=== PATIENT | male | born 1965 | race Caucasian/White ===

== ENCOUNTER 2017-01-28 12:34 | Emergency (ER) | payer MEDICARE ==
[2017-01-28 13:22] LABS: BASOPHILS 0.3 % (0-2); EOSINOPHILS 3.4 % (0-7); HEMATOCRIT 43.7 % (42.0-54.0); HEMOGLOBIN 14.4 g/dL (13.5-17.5); IMMATURE GRANULOCYTES 0.1 % (0-5); LYMPHOCYTES 18.3 % (15-50); MCH 30.5 pg (26.0-34.0); MCV 92.6 fL (80.0-100.0); MEAN PLATELET VOLUME 10.7 fL (7.4-10.4); MONOCYTES 6.7 % (2-11); NEUTROPHILS 71.2 % (40-80); PLATELET COUNT 175 10x3/uL (130-400); RBC 4.72 10x6/uL (4.20-6.10); RDW 14.1 % (11.5-14.5); WBC 11.5 10x3/uL (4.8-10.8)
[2017-01-28 13:56] LABS: ALKALINE PHOSPHATASE 128 U/L (46-116); ALT (SGPT) 43 U/L (10-68); BILIRUBIN - TOTAL 0.56 mg/dL (0.2-1.3); CALC OSMOLALITY 283 mosm/kg (275-300); CALCIUM 8.9 mg/dL (8.5-10.1); CARBON DIOXIDE 28.3 mmol/L (21.0-32.0); CHLORIDE - SERUM 104 mmol/L (98-107); GLUCOSE 130 mg/dL (74-106); POTASSIUM - SERUM 4.5 mmol/L (3.5-5.1); PROTEIN - SERUM 7.3 g/dL (6.4-8.2); SODIUM 142 mmol/L (136-145); UREA NITROGEN 11 mg/dL (7-18); eGFR NON AFRICAN AMERICAN 83 mL/min (90-120)
[2017-01-28 14:09] LABS: CKMB 1.2 U/L (0.0-3.6); CREATINE KINASE 146 UL (21-232); PRO BNP 115 pg/mL (0-125)
[2017-01-28 14:11] LABS: TROPONIN-I < 0.017 ng/mL (0.000-0.060)
== END 2017-01-28 16:25 | disposition home or self-care (01) ==
LOC: D.ER 12:34
PROVIDERS: Emergency Medicine
DX: R07.9 Chest pain, unspecified (principal); R51 Headache; Z86.73 Personal history of transient ischemic attack (TIA), and cerebral infarction without residual deficits

== ENCOUNTER 2017-10-22 18:46 | Emergency (ER) | payer OTHER | END 2017-10-22 19:30 | disposition home or self-care (01) | LOC: D.ER 18:46 | DX: M62.838 Other muscle spasm (principal); F17.200 Nicotine dependence, unspecified, uncomplicated ==

== ENCOUNTER 2018-08-18 21:03 | Emergency (ER) | payer MEDICARE ==
[~2018-08-18] VITALS: Ht 175.3 cm; Wt 70.5 kg
[2018-08-18 21:17] VITALS: Ht 175.3 cm; Wt 70.5 kg
[2018-08-18] MEDS ORDERED: GEMFIBROZIL600 MG PO (21:18)
[2018-08-18] MEDS ORDERED: MINIPRESS1 MG PO (21:18)
[2018-08-18] MEDS ORDERED: GLUCOPHAGE500 MG PO (21:19)
[2018-08-18] MEDS ORDERED: CRESTOR40 MG PO (21:19)
[2018-08-18] MEDS ORDERED: PLAVIX75 MG PO (21:19)
[2018-08-18] MEDS ORDERED: OMEPRAZOLE40 MG PO (21:20)
[2018-08-18] MEDS ORDERED: BAYER CHEWABLE81 MG PO (21:20)
[2018-08-18] MEDS ORDERED: PERCOCET 7.5/321 TAB PO (21:21)
[2018-08-18] MEDS ORDERED: TERBINAFINE (21:21)
[2018-08-18 22:27] LABS: APPEARANCE CLEAR (CLEAR); BILIRUBIN NEGATIVE (NEGATIVE); COLOR YELLOW (YELLOW); GLUCOSE NEGATIVE (NEGATIVE); KETONE NEGATIVE (NEGATIVE); NITRITE NEGATIVE (NEGATIVE); PROTEIN NEGATIVE (NEGATIVE); UROBILINOGEN NORMAL (NORMAL)
[2018-08-18 22:52] LABS: BASOPHILS 0.5 % (0-2); HEMATOCRIT 33.5 % (42.0-54.0); HEMOGLOBIN 11.3 g/dL (13.5-17.5); IMMATURE GRANULOCYTES 0.2 % (0-5); LYMPHOCYTES 31.8 % (15-50); MCHC 33.7 g/dL (31.0-37.0); MCV 88.9 fL (80.0-100.0); MEAN PLATELET VOLUME 9.8 fL (7.4-10.4); MONOCYTES 9.6 % (2-11); NEUTROPHILS 54.9 % (40-80); PLATELET COUNT 193 10x3/uL (130-400); RBC 3.77 10x6/uL (4.20-6.10); RDW 13.2 % (11.5-14.5); WBC 6.3 10x3/uL (4.8-10.8)
[2018-08-18 22:57] LABS: ALBUMIN 3.5 g/dL (3.4-5.0); ALKALINE PHOSPHATASE 102 U/L (46-116); ALT (SGPT) 50 U/L (10-68); BILIRUBIN - TOTAL 0.31 mg/dL (0.2-1.3); CALC OSMOLALITY 287 mosm/kg (275-300); CALCIUM 8.3 mg/dL (8.5-10.1); CARBON DIOXIDE 29.1 mmol/L (21.0-32.0); CHLORIDE - SERUM 105 mmol/L (98-107); CREATININE - SERUM 0.9 mg/dL (0.6-1.3); GLUCOSE 159 mg/dL (74-106); PROTEIN - SERUM 6.9 g/dL (6.4-8.2); SODIUM 142 mmol/L (136-145); UREA NITROGEN 17 mg/dL (7-18); eGFR NON AFRICAN AMERICAN > 90 mL/min (90-120)
[2018-08-18] MEDS ORDERED: ZOFRAN ODT4 MG/UDTAB PO (23:16)
[2018-08-18 23:56] VITALS: BP 139/74
== END 2018-08-18 23:56 | disposition home or self-care (01) ==
LOC: D.ER 21:03
PROVIDERS: Emergency Medicine
DX: R11.10 Vomiting, unspecified (principal); E86.0 Dehydration; Z86.73 Personal history of transient ischemic attack (TIA), and cerebral infarction without residual deficits; E11.9 Type 2 diabetes mellitus without complications; J44.9 Chronic obstructive pulmonary disease, unspecified

== ENCOUNTER 2019-04-20 13:38 | Inpatient (IN) | payer MEDICARE ==
[~2019-04-20] VITALS: Ht 175.3 cm; Wt 68.2 kg
--- NOTE | ~2019-04-20 | HEMODYNAMI ---
PATIENT:KENDRA BARRY MEDICAL RECORD: [id number] : 63 [address] [id number] ADMISSION DATE: 04/21/19 Generatedon:04/21/201915:41 Patient name: KENDRA BARRY Patient #: [id number] N: [id number] : 1965 Date of study: 04/21/2019 Page: Of Hemodynamic Procedure Report Patient Data Patient Demographics Procedure consent was obtained First Name: KENDRA Gender: Male Last Name: ASHA : 1965 Middle Initial: RAMONEWARD Age: 54 year(s) Patient #: [id number] Race: SSN: [id number] Additional ID: [id number] Contact details Address: [address] [place] [address] State: [place] City: [place] Zip code: [address] Past Medical History Allergies: No known allergies Admission Admission Data Admission Date: 04/21/2019 Admission Time: 11:42 Room #: [facility] Insurance Payor: Medicare [facility] #: [id number] Height (in.): 68.9 BSA: 1.83 (m2) Height (cm.): 175 BMI: 22.2 (kg/m2) Weight (lbs.): 149.92 Weight (kg.): 68 Lab Results Lab Result Date: 04/21/2019 Lab Result Time: 4:37 Biochemistry Name Units Result Min Max BUN mg/dl 18 --(---*)-- 7 18 Creatinine mg/dl 0.9 --(-*--)-- 0.6 1.3 CBC Name Units Result Min Max Hematocrit % 40.9 -*(----)-- 42 54 Hemoglobin g/dl 14.1 --(*---)-- 13.5 17.5 Procedure Procedure Types Cath Procedure Diagnostic Procedure LHC LHC w/Coronaries Peripheral Cath Diagnostic Procedure Sports Book Writer Peripheral Procedures Utqok-Exnvpns-Ukc-Off Four Vessel Arteriogram Peripheral vascular Intervention Stent Stent Iliac w/plasty Initial Procedure Description Procedure Date Procedure Date: 04/21/2019 Procedure Start Time: 14:58 Procedure End Time: 15:39 Procedure Staff Name Function Cullen Colvin MD Performing Physician Juan Carlos Gandhi RT Monitor Ran Bragg RT Scrub Chiqui Cao RN Nurse Procedure Data Cath Procedure Fluoroscopy Diagnostic fluoroscopy Total fluoroscopy Time: 9.8 time: 9.8 min min Diagnostic fluoroscopy Total fluoroscopy dose: 742 dose: 742 mGy mGy Contrast Material Contrast Material Type Amount (ml) Isovue 300 204 Entry Location Entry Primary Successful Side Size Upsize 1 Upsize Entry Closure Briceno ccessful Closure Location (Fr) (Fr) 2 (Fr) Remarks Device Remarks Femoral Right 5 Fr 6 Fr 6 Fr Exoseal artery Mid-Length Short Estimated blood loss: 10 ml Diagnostic catheters Device Type Used For End Catheter Placement MULTIPACK 3DRC 5Fr Procedure catheter MULTIPACK JL 4.0 5Fr Procedure catheter MULTIPACK Pigtail 5 Fr Procedure catheter Procedure Complications No complications Procedure Medications Medication Administration Route Dosage Oxygen etCO2 Nasal cannula 2 l/min Lidocaine 2% added to field 20 Heparin Flush Bag added to field 2 bags (1000units/500ml NS) 0.9% NaCl I.V. 100 ml/hr Versed I.V. 1 mg Fentanyl I.V. 50 mcg Versed I.V. 1 mg Fentanyl I.V. 50 mcg Versed I.V. 1 mg Fentanyl I.V. 50 mcg Versed I.V. 1 mg Fentanyl I.V. 50 mcg Heparin Bolus I.V. 4000 units Hemodynamics Rest BSA: 1.83 (m2) HGB: 14.1 (g/dl) O2 Consumption: Estimated: 217.92 (ml/min) O2 Co nsumption indexed: Estimated:119.08 (ml/min/m) Heart Rate: 72 (bpm) Pressure Samples Time Site Value (mmHg) Purpose Heart Use Rate(bpm) 15:13 LV 97/5,14 Snapshot 77 15:13 AO 105/58(79) Pullback 83 Gradients Valve Time Site Site 2 Mean SEP/DFP Peak To Heart Use 1 (mmHg) (sec/min) Peak Rate (mmHg) (bpm) Aortic 15:13 LV AO 17 37 83 105/58(79) Calculations Valve P-P Mean Valve Index Valve Source Name Gradient Area Flow (cm2) Aortic 17 17 Snapshots Pre Cath Intra NCS Post Cath Vital Signs Time Heart Resp SPO2 etCO2 NIBP (mmHg) Rhythm Pain Sedation Rate (ipm) (%) (mmHg) Status Level (bpm) 14:52:02 73 18 96 30.8 131/89(113) NSR 0 (11) 10(A) , No pain 14:55:49 77 12 96 24.7 115/74(91) NSR 0 (11) 10(A) , No pain 14:59:37 73 14 94 23.2 112/70(98) NSR 0 (11) 10(A) , No pain 15:03:20 81 16 95 8.2 117/79(97) NSR 0 (11) 10(A) , No pain 15:07:25 79 15 96 37.6 123/79(100) NSR 0 (11) 10(A) , No pain 15:11:13 80 10 94 39.8 118/75(102) NSR 0 (11) 9(A) , No pain 15:15:02 81 14 93 39.8 112/66(93) NSR 0 (11) 9(A) , No pain 15:18:52 80 11 94 42.8 107/63(89) NSR 0 (11) 9(A) , No pain 15:22:39 83 12 94 40.5 101/66(87) NSR 0 (11) 9(A) , No pain 15:26:26 83 12 95 41.3 106/65(87) NSR 0 (11) 9(A) , No pain 15:30:14 80 13 94 41.3 103/63(85) NSR 0 (11) 9(A) , No pain 15:34:22 80 12 96 41.2 107/69(89) NSR 0 (11) 10(A) , No pain 15:38:25 86 11 42 139/80(97) NSR 0 (11) 10(A) , No pain Medications Time Medication Route Dose Verified Delivered Reason Notes Effectiveness by by 14:51:14 Oxygen etCO2 2 Cullen Florian used for Nasal l/min St Bulmaro Cao senior front end web developer cannula 14:51:20 Lidocaine 2% added 20ml Cullen Berman for local to vial St Bulmaro Colvin anesthetic field MD RASHEED 14:51:27 Heparin Flush added 2 Cullen Berman used for Bag to bags ViniciusBulmaro Colvin procedure (1000units/500ml field MD RASHEED NS) 14:51:35 0.9% NaCl I.V. 100 Cullen Nasirie Per physician ml/hr St Bulmaro Cao RN, MD 14:56:45 Versed I.V. 1 mg Cullen Buffie for sedation St Bulmaro Cao RN, MD 14:56:51 Fentanyl I.V. 50 Cullen Buffie for sedation mcg [facility] Bulmaro Cao RN, MD 15:00:28 Versed I.V. 1 mg Cullen Buffie for sedation St Bulmaro Cao RN, MD 15:00:32 Fentanyl I.V. 50 Cullen Buffie for sedation mcg [address] Bulmaro Cao RN, MD 15:10:56 Versed I.V. 1 mg Cullen Buffie for sedation St Blumaro Cao RN, MD 15:10:59 Fentanyl I.V. 50 Cullen Buffie for sedation mcg [facility] Bulmaro Cao RN, MD 15:17:36 Versed I.V. 1 mg Cullen Buffie for sedation St Bulmaro Cao RN, MD 15:17:39 Fentanyl I.V. 50 Cullen Buffie for sedation mcg [facility] Bulmaro Cao RN, MD 15:19:08 Heparin Bolus I.V. 4000 Cullen Buffie for verif ied units St Bulmaro Cao RN anticoagulation with dr MD sanabria Procedure Log Time Note 14:08:20 Insurance Payor : Medicare 14:10:54 Diagnostic Cath Status : Urgent 14:12:07 Patient allergic to No known allergies 14:13:05 Patient Weight : 149.92 lbs 14:13:09 Patient Height : 68.9 inches 14:16:41 ACC Patient presents with Unstable Angina CCS Anginal Class 4--Inability to carry out any physical activity w/o angina. Angina may occur at rest. 14:16:43 ACCPatient has been prescribed/administered the following anti-anginal medication within the last 2 weeks: None 14:18:55 Procedure Status Urgent Heart Cath (IP). 14:18:57 Juan Carlos ATKINSON(R) sent for patient. Start room use. 14:19:00 Time tracking: Regular hours (M-F 7:00 - 5:00) 14:19:04 Plan of Care:Hemodynamics will remain stable., Cardiac rhythm will remain stable., Comfort level will be maintained., Respiratory function will remain adequate., Patient/ family verbilizes understanding of procedure., Procedure tolerated without complication., Recovers from procedure without complications.. 14:19:15 H&P Date Dictated: 04/20/2019 Within 30 days and on chart.. 14::47 Lab Result : BUN 18 mg/dl 14::47 Lab Result : Creatinine 0.9 mg/dl 14::47 Lab Result : Hemoglobin 14.1 g/dl 14: Lab Result : Hematocrit 40.9 % 14:29:29 Patient received from Med II to CCL 2 Alert and oriented. Tansferred to table in Supine position. 14:29:31 Signed procedure consent form obtained from patient. 14:29:32 Warm blankets applied, and tonie hugger turned on for patient comfort. 14:29:33 Correct patient and procedure confirmed by team. 14:29:34 ECG and BP/O2 sat monitors applied to patient. 14:29:35 Pre-procedure instructions explained to patient. 14:29:36 Pre-op teaching completed and patient verbalized understanding. 14:29:45 Family in patients room. 14:29:46 Patient NPO since Midnight. 14:29:48 Is the patient allergic to Iodine/contrast media? No. 14:38:27 IV right wrist D/C'd due to infiltration. 14:38:35 IV started by Chiqui Cao RN inleft forearm with a 22 gauge IV catheter with 0.9% NaCl at KVO. 14:51:05 Vital chart was started 14:51:14 Oxygen 2 l/min etCO2 Nasal cannula was administered by Chiqui Cao RN; used for procedure; 14:51:20 Lidocaine 2% 20ml vial added to field was administered by Cullen Colvin MD; for local anesthetic; 14:51:27 Heparin Flush Bag (1000units/500ml NS) 2 bags added to field was administered by Cullen Colvin MD; used for procedure; 14:51:27 Baseline sample Acquired. 14:51:30 Rhythm: sinus rhythm 14:51:31 Full Disclosure recording started 14:51:35 0.9% NaCl 100 ml/hr I.V. was administered by Chiqui Cao RN; Per physician; 14:51:35 Is patient on blood thinner?Yes 14:51:37 ACC The patient was administered the following blood thiners within the last 24 hours: ACCPlavix 14:51:39 Patient diabetic? Yes. 14:51:40 If diabetic: On Metformin? Yes 14:51:44 If on Metformin: Last Dose? 04/20/2019 14:51:47 Previous problem with sedation/anesthesia? No ? 14:51:49 Snore? Yes 14:51:50 Sleep apnea? No 14:51:51 Deviated septum? No 14:51:51 Opens mouth fully? Yes 14:51:52 Sticks out tongue? Yes 14:51:54 Airway obstruction? No ? 14:51:57 Dentures? No ? 14:51:59 Pre procedure: right dorsailis pedis pulse 1+ Palpable, but thready & weak; easily obliterated 14:52:01 Patient pain scale 0/10 ?. 14:52:08 Lab results completed and on chart. 14:52:12 Right groin area was prepped with chlora-prep and draped in sterile fashion 14:52:13 Alarms reviewed by R. N. 14:52:14 Sharps counted by scrub and verified by R.N. 14:53:01 Use device set Femoral Dx 14:53:04 Tegaderm 4 x 4 (1626W) opened to sterile field. 14:53:06 ACIST Manifold (42333) opened to sterile field. 14:53:07 ACIST Hand Control (19159) opened to sterile field. 14:53:10 Medline Cath Pack ([id number]) opened to sterile field. 14:53:10 Bag Decanter (2002S) opened to sterile field. 14:53:10 ACIST Syringe (84468) opened to sterile field. 14:53:11 IV CATHETER 22g opened to sterile field. 14:53:12 IV Extension Set opened to sterile field. 14:53:14 DIAGNOSTIC Multipack 5Fr catheter set (CU0627) opened to sterile field. 14:53:15 SHEATH 5FR [place] (ETO839) opened to sterile field. 14:53:16 EMERALD Guide Wire (387-090) opened to sterile field. 14:55:45 --------ALL STOP TIME OUT------ 14:55:46 Final Timeout: patient, procedure, and site verified with staff and physician. All members of the team are in agreement. 14:55:48 Right groin site verified by team. 14:55:51 Fire Safety Assessment: A--An alcohol-based skin anteseptic being used preoperatively., C--Open oxygen or nitrous oxide is being used., D--An ESU, laser, or fiber-optic light is being used. 14:55:58 Physical assessment completed. ASA score P 2 - A patient with mild systemic disease as per Cullen Colvin MD. 14:56:07 2) 60-89 Mildly reduced kidney function, and other findings (as for stage 1) point to kidney disease. 14:56:12 Maximum allowable contrast dose (3.7 X eGFR X 0.75)228 ml. 14:56:17 Sedation plan: IV Moderate Sedation Medication:Versed, Fentanyl 14:56:45 Versed 1 mg I.V. was administered by Chiqui Cao RN; for sedation; 14:56:51 Fentanyl 50 mcg I.V. was administered by Chiqui Cao RN; for sedation; 14:58:15 Procedure started. 14:58:20 Local anesthetic to right femoral artery with Lidocaine 2% by Cullen Colvin MD.INITIAL ACCESS ONLY 15:00:28 Versed 1 mg I.V. was administered by Chiqui Cao RN; for sedation; 15:00:32 Fentanyl 50 mcg I.V. was administered by Chiqui Cao RN; for sedation; 15:03:58 A 5 Fr sheath was inserted into the Right Femoral artery 15:04:19 GLIDE WIRE ANGLE 260cm (MK6401) opened to sterile field. 15:04:34 A MULTIPACK 3DRC 5Fr catheter was advanced over the wire and used for Procedure. 15:04:44 Glidewire used to advance catheter. 15:05:55 RCA angiography performed. 15:06:58 Bilateral carotid angiography performed. 15:08:22 Catheter removed. 15:10:56 Versed 1 mg I.V. was administered by Chiqui Cao RN; for sedation; 15:10:59 Fentanyl 50 mcg I.V. was administered by Chiqui Cao RN; for sedation; 15:11:11 A MULTIPACK JL 4.0 5Fr catheter was advanced over the wire and used for Procedure. 15:11:18 LCA angiography performed. 15:11:28 ACCDominant side:Right 15:11:43 Catheter removed. 15:11:48 A MULTIPACK Pigtail 5 Fr catheter was advanced over the wire and used for Procedure. 15:13:25 LV angiography performed. 15:13:28 LV gram done using WANG 15:13:33 EF : 55 % 15:13:40 LV hemodynamics recorded. 15::43 Injector settings: Ml/sec: 10, Volume: 20, 15:15:39 Right leg runoff performed. 15:15:40 Left leg runoff performed. 15:16:19 Catheter removed. 15:16:23 Use device set ELCHO PCI 15:16:52 SHEATH 6FR Brite Tip 35cm ([id number]) opened to sterile field. 15:17:02 INFLATOR Merit BasixCompak (NE7445) opened to sterile field. 15:17:10 SHEATH 6FR [place] (JBK011) opened to sterile field. 15:17:36 Versed 1 mg I.V. was administered by Chiqui Cao RN; for sedation; 15:17:39 Fentanyl 50 mcg I.V. was administered by Chiqui Cao RN; for sedation; 15:18:06 Sheath upsized to a 6 Fr Mid-Length. 15:19:08 Heparin Bolus 4000 units I.V. was administered by Chiqui Cao RN; for anticoagulation; verified with dr sanabria 15:20:22 Glidewire advanced across lesion. 15:21:16 TORQUE DEVICE PLASTIC .038 ( TD01) opened to sterile field. 15:26:43 Procedure type changed to Cath procedure, Diagnostic procedure, LHC, LHC w/Coronaries, Peripheral Cath Diagnostic Procedure, Sports Book Writer Peripheral Procedures, Ghobw-Izmrmzc-Usd-Off, Four Vessel Arteriogram, Peripheral vascular Intervention, Stent, Stent Iliac w/plasty Initial 15:28:09 Place stent Inflation Number: 1 A [place] 7 x 18 x 135 stent ([id number]) was prepped and advanced across the Mid Common Iliac, Right 95. The stent was deployed at 8 GELY for 0:30 (min:sec) 0. 15:30:08 Stent catheter was removed intact over wire. 15:30:27 Place stent Inflation Number: 2 A [place] 7 x 18 x 135 stent ([id number]) was prepped and advanced across the Mid Common Iliac, Right 0. The stent was deployed at 8 GELY for 0:30 (min:sec) 0. 15:31:50 Stent catheter was removed intact over wire. 15:31:53 Wire removed. 15:32:04 Sheath upsized to a 6 Fr Short. 15:32:10 EXOSEAL 6Fr (EX600) opened to sterile field. 15:32:25 Sheath removed intact; hemostasis achieved with Exoseal to the Right Femoral artery. 15:32:26 Procedure ended.(Physican Out) 15:35:53 Fluoroscopy time 09.80 minutes. 15:36:20 Fluoroscopy dose: 742 mGy 15:36:20 Flurop Dose total: 742 15:36:32 Dose Area Product 62475 mGy/cm. 15:36:39 Contrast amount:Isovue 300 204ml. 15:36:41 Maximum allowable dose exceeded? No. 15:36:42 Sharps counted by scrub and verified by R.N. 15:36:43 Insertion/operative site no bleeding no hematoma. 15:36:46 Post-op/insertion site Right Femoral artery dressed using a 4 x 4 and Tegaderm. 15:36:51 Post Procedure Pulses reassessed and unchanged 15:36:57 Post-procedure physical assessment completed. ASA score P 2 - A patient with mild systemic disease as per Cullen Colvin MD. 15:37:00 Post procedure rhythm: unchanged. 15:37:02 Estimated blood loss: 10 ml 15:37:04 Post procedure instruction explained to patient.Patient verbalizes understanding. 15:37:04 Patient needs reinforcement of post procedure teaching. 15:38:30 Procedure and supply charges have been captured, reviewed, submitted and are correct. 15:38:33 Procedure Complication : No complications 15:38:38 Vital chart was stopped 15:38:38 See physician's report for complete and final results. 15:39:12 Report given to Pre/Post Procedure Room. 15:39:18 Patient transfered to Pre/Post Procedure Room with Stretcher. 15:39:25 Procedure ended. 15:39:25 Full Disclosure recording stopped 15:40:06 End room use (Document Last) Intervention Summary Intervention Notes Time ActionType Lesion and Equipment Action# Pressure Duration Attributes Used 15:28:09 Place stent Mid Common HOUSTON 7 x 1 8 00:30 Iliac, 18 x 135 Right stent ([id number]) 15:30:27 Place stent Mid Common [place] 7 x 2 8 00:30 Iliac, 18 x 135 Right stent ([id number]) Device Usage Item Name Manufacture Quantity Catalog Hospital Part Current Minimal Lot# / Number Charge Number Stock Stock Serial# Code Tegaderm 4 3M 1 1626W 767248 114702 987380 5 x 4 (1626W) ACIST Acist 1 54867 256530 551582 616694 5 Manifold Medical (26395) Systems Inc ACIST Hand Acist 1 98140 043162 283182 400578 5 Control Medical (11100) Systems Inc Medline Medline 1 [id number] 914712 28762 071132 5 Cath Pack (OUTG14261) Bag Microtek 1 2001S 224165 49412 848852 5 Decanter Medical Inc. () ACIST Acist 1 98877 838911 233235 843110 20 Syringe Medical (91809) Systems Inc IV CATHETER B. Jones 1 7190634-01 594336 765361 058018 5 22g IV Hospira 1 66647-96 203895 32539 195444 5 Extension Set DIAGNOSTIC Cardinal 1 TA0465 073061 10843 593743 30 MultipSuzerein Solutions 5Fr catheter set (AX6037) SHEATH 5FR Terumo 1 RFQ538 834414 823167 981099 5 Newcastle (MJZ770) EMERALD Cardinal 1 502-455 816134 704062 839118 5 Guide Wire Health (502-455) GLIDE WIRE Terumo 1 YR8886 175809 381097 445946 5 ANGLE 260cm (SV3726) MULTIPACK Cardinal 1 868056 5 3DRC 5Fr Health catheter MULTIPACK Cardinal 1 816438 5 JL 4.0 5Fr Health catheter MULTIPACK Cardinal 1 729039 5 Pigtail 5 Health Fr catheter SHEATH 6FR Cardinal 1 [id number] 299915 630218 336106 1 Rodin Therapeutics 35cm (348895H) INFLATOR Merit 1 QG8450 351805 267593 173047 15 Jack Robie Medical BasixCompak (PZ9085) SHEATH 6FR Terumo 1 NVI989 218877 211314 217379 40 [place] (NEP043) TORQUE [place] 1 TD01 900604 240899 153162 5 DEVICE Scientific PLASTIC .038 ( TD01) [place] 7 x Cardinal 2 [id number] 541350 216641 078487 5 [id number] 18 x 135 Health [id number] stent ([id number]) EXOSEAL 6Fr Cardinal 1 EX600 932848 774947 265640 10 (EX600) Health Signature Audit [place] Stage Time Signature Unsigned Intra-Procedure 04/21/2019 Juan Carlos Gandhi 3:41:07 PM RT(R) Signatures Performing Physician : Signature : Cullen Colvin MD Date : Time : Monitor : Juan Carlos Gandhi RT Signature : Date : Time : Nurse : Chiqui Cao RN Signature : Date : Time : [address] [place] [address]
[~2019-04-20 13:38] MED LIST: BAYER CHEWABLE81 MG PO; CRESTOR40 MG PO; GEMFIBROZIL600 MG PO; GLUCOPHAGE500 MG PO; MINIPRESS1 MG PO; OMEPRAZOLE40 MG PO; PERCOCET 7.5/321 TAB PO; PLAVIX75 MG PO; TERBINAFINE; ZOFRAN ODT4 MG/UDTAB PO
[2019-04-20 14:13] LABS: BASOPHILS 0.9 % (0-2); EOSINOPHILS 7.1 % (0-7); HEMOGLOBIN 15.7 g/dL (13.5-17.5); IMMATURE GRANULOCYTES 0.2 % (0-5); LYMPHOCYTES 34.7 % (15-50); MCH 30.4 pg (26.0-34.0); MCHC 34.9 g/dL (31.0-37.0); MEAN PLATELET VOLUME 10.8 fL (7.4-10.4); MONOCYTES 6.6 % (2-11); NEUTROPHILS 50.5 % (40-80); RBC 5.17 10x6/uL (4.20-6.10); RDW 14.3 % (11.5-14.5); WBC 9.1 10x3/uL (4.8-10.8)
[2019-04-20 14:14] VITALS: BP 120/92
[2019-04-20 14:21] LABS: APTT 35.4 SECONDS (22.8-39.4); INR 1.02 (0.85-1.17); PROTIME 12.9 SECONDS (11.6-15.0)
[2019-04-20 14:29] LABS: ALBUMIN 4.6 g/dL (3.4-5.0); ALKALINE PHOSPHATASE 129 U/L (46-116); ALT (SGPT) 35 U/L (10-68); BILIRUBIN - TOTAL 0.85 mg/dL (0.2-1.3); CALC OSMOLALITY 280 mosm/kg (275-300); CALCIUM 9.1 mg/dL (8.5-10.1); CARBON DIOXIDE 25.6 mmol/L (21.0-32.0); CHLORIDE - SERUM 101 mmol/L (98-107); CREATININE - SERUM 0.9 mg/dL (0.6-1.3); GLUCOSE 144 mg/dL (74-106); POTASSIUM - SERUM 4.5 mmol/L (3.5-5.1); PROTEIN - SERUM 8.4 g/dL (6.4-8.2); SODIUM 138 mmol/L (136-145); UREA NITROGEN 19 mg/dL (7-18); eGFR NON AFRICAN AMERICAN > 90 mL/min (90-120)
[2019-04-20 14:41] LABS: CKMB 1.1 U/L (0.0-3.6); CREATINE KINASE 104 UL (21-232); MAGNESIUM - SERUM 1.8 mg/dL (1.8-2.4)
[2019-04-20 14:45] LABS: TROPONIN-I < 0.017 ng/mL (0.000-0.060)
[2019-04-20 14:50] LABS: PLATELET COUNT 265 10x3/uL (130-400)
[2019-04-20 17:37] LABS: CKMB 0.8 U/L (0.0-3.6); CREATINE KINASE 74 UL (21-232)
[2019-04-20 17:46] LABS: TROPONIN-I < 0.017 ng/mL (0.000-0.060)
[2019-04-20 19:55] VITALS: BP 149/86
[2019-04-20 23:01] LABS: CREATINE KINASE 71 UL (21-232)
[2019-04-20 23:15] LABS: TROPONIN-I < 0.017 ng/mL (0.000-0.060)
[2019-04-21] VITALS: BP 121/69
[2019-04-21 03:57] VITALS: BP 121/69
[2019-04-21 04:00] VITALS: BP 116/72
[2019-04-21 05:33] LABS: BASOPHILS 0.8 % (0-2); EOSINOPHILS 6.2 % (0-7); HEMATOCRIT 40.9 % (42.0-54.0); HEMOGLOBIN 14.1 g/dL (13.5-17.5); LYMPHOCYTES 39.9 % (15-50); MCH 29.6 pg (26.0-34.0); MCHC 34.5 g/dL (31.0-37.0); MCV 85.7 fL (80.0-100.0); MEAN PLATELET VOLUME 10.3 fL (7.4-10.4); MONOCYTES 8.1 % (2-11); PLATELET COUNT 244 10x3/uL (130-400); RBC 4.77 10x6/uL (4.20-6.10); RDW 13.9 % (11.5-14.5)
[2019-04-21 05:54] LABS: WBC 6.6 10x3/uL (4.8-10.8)
[2019-04-21 06:11] LABS: ALKALINE PHOSPHATASE 115 U/L (46-116); ALT (SGPT) 32 U/L (10-68); BILIRUBIN - TOTAL 0.38 mg/dL (0.2-1.3); CALC OSMOLALITY 283 mosm/kg (275-300); CALCIUM 9.7 mg/dL (8.5-10.1); CARBON DIOXIDE 27.5 mmol/L (21.0-32.0); CHLORIDE - SERUM 103 mmol/L (98-107); CKMB 0.9 U/L (0.0-3.6); CREATINE KINASE 68 UL (21-232); CREATININE - SERUM 0.9 mg/dL (0.6-1.3); GLUCOSE 121 mg/dL (74-106); MAGNESIUM - SERUM 1.8 mg/dL (1.8-2.4); PHOSPHOROUS 4.5 mg/dL (2.5-4.9); PROTEIN - SERUM 7.7 g/dL (6.4-8.2); SODIUM 141 mmol/L (136-145); UREA NITROGEN 18 mg/dL (7-18); eGFR NON AFRICAN AMERICAN > 90 mL/min (90-120)
[2019-04-21 06:13] LABS: C-REACTIVE PROTEIN < 0.2 mg/dL (0.0-0.9); POTASSIUM - SERUM 3.7 mmol/L (3.5-5.1); TROPONIN-I < 0.017 ng/mL (0.000-0.060)
[2019-04-21 09:55] VITALS: BP 145/85
[2019-04-21 11:02] LABS: ERYTHROCYTE SEDIMENTATION RATE 7 mm/hr (0-20)
[2019-04-21 13:12] VITALS: BMI 22.1
[2019-04-21 13:44] LABS: BASOPHILS 0.9 % (0-2); EOSINOPHILS 5.8 % (0-7); HEMATOCRIT 40.1 % (42.0-54.0); IMMATURE GRANULOCYTES 0.1 % (0-5); LYMPHOCYTES 31.6 % (15-50); MCH 29.9 pg (26.0-34.0); MCHC 34.9 g/dL (31.0-37.0); MCV 85.7 fL (80.0-100.0); MEAN PLATELET VOLUME 10.3 fL (7.4-10.4); MONOCYTES 6.7 % (2-11); NEUTROPHILS 54.9 % (40-80); PLATELET COUNT 224 10x3/uL (130-400); RBC 4.68 10x6/uL (4.20-6.10); RDW 13.9 % (11.5-14.5); WBC 6.7 10x3/uL (4.8-10.8)
[2019-04-21 13:57] LABS: CALC OSMOLALITY 284 mosm/kg (275-300); CALCIUM 9.5 mg/dL (8.5-10.1); CARBON DIOXIDE 30.2 mmol/L (21.0-32.0); CHLORIDE - SERUM 102 mmol/L (98-107); GLUCOSE 122 mg/dL (74-106); POTASSIUM - SERUM 3.9 mmol/L (3.5-5.1); SODIUM 141 mmol/L (136-145); UREA NITROGEN 22 mg/dL (7-18); eGFR NON AFRICAN AMERICAN 82 mL/min (90-120)
--- NOTE | 2019-04-21 14:38 | CN ---
PATIENT NAME:KENDRA BARRY MEDICAL RECORD: [id number] : 63 LOCATION:D.Dav D.2127 ADMIT DATE: 04/21/19 ACCOUNT: [id number] CONSULTING PHYSICIAN: LAUREL BABCOCK MD REFERRING PHYSICIAN: TARAS BYRNES MD DATE OF CONSULTATION: 04/21/2019 HISTORY OF PRESENT ILLNESS: A 54-year-old gentleman with no known history of coronary artery disease, has a history of cerebrovascular disease with TIA diagnosed empirically in the past, strong family history of coronary artery disease as well as diabetes mellitus, hypertension, ongoing tobacco use, admitted with intermittent left-sided weakness, numbness and tingling accompanied by visual changes, amaurosis fugax type symptomatology with visual changes, left side more predominant, both eyes involved at the same time. Chest heaviness and pressure with minimal exertion, also rest symptomatology last night. We are asked to see him concerning is his cardiovascular status. PAST MEDICAL HISTORY: Includes: 1. History of cerebrovascular disease. 2. Diabetes mellitus, on oral agents. 3. Hypertension. 4. Hyperlipidemia. 5. Gastroesophageal reflux disease. ALLERGIES: None known. MEDICATIONS: Include Lopid 600 mg p.o. b.i.d., prazosin 1 mg p.o. b.i.d., Crestor 40 every day, aspirin 81 daily, metformin 1 gram b.i.d. SOCIAL HISTORY: Smokes about a pack a day, nondrinker. No set exercise program. Easily takes care of all his ADLs. REVIEW OF SYSTEMS: The patient reports easy bruising but reports no swollen glands. The patient reports no fever, no night sweats, no significant weight gain, no significant weight loss. No significant exercise tolerance. The patient reports no dry eyes, no irritation, no vision change. Patient reports no difficulty hearing and no ear pain. Patient reports no frequent nose bleeds or nose and sinus problems. Patient reports on arm pain on exertion. No shortness of breath while lying down. No history of heart murmur. Patient reports no cough, no wheezing or coughing up blood. Patient reports no abdominal pain, no vomiting. Normal appetite. No diarrhea and not vomiting blood. No nausea and no constipation. Patient reports no incontinence. No difficulty urinating. No hematuria. No increased frequency. Patient reports no muscle aches. No weakness, no arthralgias, no back pain. No swelling of the extremities. Patient reports no abnormal mole, no jaundice, no rashes. Reports no loss of consciousness. No weakness and no numbness. No seizures, dizziness, or headaches. The patient reports no depression, no sleep disturbance, feeling safe in a relationship and no alcohol abuse. Patient reports on fatigue. Reports no runny nose or sinus pressure. No itching, no hives, and no frequent sneezing. PHYSICAL EXAMINATION: GENERAL: Pleasant gentleman in no acute distress. VITAL SIGNS: Blood pressure 116/72, pulse 75 and regular. HEENT: Normocephalic, atraumatic. CONSULT REPORT [id number] KENDRA BARRY NECK: No bruits noted. HEART: Regular, II/ systolic ejection murmur. LUNGS: Fair air excursion, slightly prolonged respiratory phase. ABDOMEN: Soft, nontender. EXTREMITIES: Pulses 2+ with no edema. NEUROLOGIC: Grossly intact. DIAGNOSTIC DATA: ECG shows nonspecific ST-T changes inferolaterally. IMPRESSION: Acute coronary syndrome, TIA type symptomatology with amaurosis fugax, multiple risk factors. PLAN: For diagnostic angiography, 4-vessel arteriography in the same setting. TRANSINT:[id number] Voice Confirmation ID: [id number] DOCUMENT ID: [id number] LAUREL BABCOCK MD at 1438 CC: [id number] DICTATION DATE: 04/21/19832 QUALITY ENG: 04/21/19 0855 ADM IN [place] [id number] [place] [id number]
[2019-04-21 14:47] VITALS: BP 156/87
[2019-04-21 20:00] VITALS: BP 125/70
[2019-04-22] VITALS: BP 109/60
[2019-04-22 04:00] VITALS: BP 101/57
[2019-04-22 05:49] LABS: BASOPHILS 0.4 % (0-2); EOSINOPHILS 5.5 % (0-7); HEMATOCRIT 36.6 % (42.0-54.0); HEMOGLOBIN 12.4 g/dL (13.5-17.5); IMMATURE GRANULOCYTES 0.1 % (0-5); LYMPHOCYTES 24.8 % (15-50); MCH 29.5 pg (26.0-34.0); MCHC 33.9 g/dL (31.0-37.0); MCV 86.9 fL (80.0-100.0); MEAN PLATELET VOLUME 10.4 fL (7.4-10.4); NEUTROPHILS 61.2 % (40-80); PLATELET COUNT 208 10x3/uL (130-400); RBC 4.21 10x6/uL (4.20-6.10); WBC 8.3 10x3/uL (4.8-10.8)
[2019-04-22 06:36] LABS: ANION GAP 14.6 mmol/L (8-16); CALCIUM 8.7 mg/dL (8.5-10.1); CARBON DIOXIDE 27.3 mmol/L (21.0-32.0); CREATININE - SERUM 1.2 mg/dL (0.6-1.3); POTASSIUM - SERUM 3.9 mmol/L (3.5-5.1)
[2019-04-22 08:00] VITALS: BP 127/86
[2019-04-22 09:18] VITALS: BP 127/86
[2019-04-22 09:23] VITALS: Ht 175.3 cm; Wt 68.2 kg
--- NOTE | 2019-04-22 11:54 | MORECARE ---
CASE MANAGEMENT DISCHARGE SUMMARY PATIENT: KENDRA BARRY ED[place] UNIT: [id number] ADM DATE: 04/21/19 AGE: 54 : 63 SEX: M ROOM/BED: D.2127 AUTHOR: FRED CONRAD PHYSICIAN: REFERRING PHYSICIAN: TARAS BYRNES MD DATE OF SERVICE: 04/22/19 Discharge Plan Patient Name: KENDRA BARRY Facility: [facility]:[place] : 1965 Planned Disposition: Home Anticipated Discharge Date: 04/22/19 Discharge Date: 04/22/2019 Expected LOS: 1 Initial Reviewer: [email or web address] Initial Review Date: 04/22/2019 Generated: 04/22/19 12:53 pm Comments DCP- Discharge Planning Updated by [email or web address]: Harpreet Garcia on 04/22/19 10:[address] Patient Name: KENDRA BARRY Admission Status: ER Accout number: [id number] Admission Date: 04-21-2019 : 1965 Admission Diagnosis: Attending: TARAS BYRNES Current LOS: 1 Anticipated DC Date: 04-22-2019 Planned Disposition: Home Primary Insurance: MEDICARE A & B Discharge Planning Comments: CM ATTEMPTED TO MEET WITH PT FOR INITIAL ASSESSMENT OF DISCHARGE NEEDS. PT WAS NOT IN ROOM AT APPROXIMATELY 1142 HOURS. PT WAS DISCHARGED HOME. Credit Negotiator: Harpreet Garcia Patient Name: KENDRA BARRY Page [phone] at 1154 All edits/amendments must be made on the electronic document DICTATION DATE: 04/22/19 1153 GLUING MACHINE OFFBEARER: AGUSTIN 04/22/19 1153 RPT#: [id number] DC DATE:04/22/19 STATUS: DIS IN [facility] [address] [place] [address] END OF REPORT
--- NOTE | 2019-04-26 14:28 | OP ---
PATIENT NAME: KENDRA BARRY MEDICAL RECORD: [id number] :63 LOCATION:D.M2 D.2127 ADMISSION DATE:04/21/19 SURGEON: LAUREL BABCOCK MD DATE OF OPERATION: 04/21/2019 PROCEDURE: Cath, 4-vessel plus, and aortofemoral runoff. AFRO was performed after difficulty with access traversing the right iliac system. FINDINGS: Four-vessel arteriography, right common carotid was selectively engaged. It has wall irregularities, but no flow obstructive stenosis. Right internal carotid shows luminal irregularities, but no flow obstructive stenosis. 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 LEFT SYSTEM: Left common carotid was selectively engaged. This shows mild wall disease. No significant stenosis. Left internal carotid shows stenosis in its proximal portion no greater than 50%. External carotid on the left shows no significant stenosis. Left heart catheterization, selective coronary angiography, right femoral artery approach. LEFT MAIN: Left main is free of disease. LAD: Free of disease in the diagonal system. CIRCUMFLEX: Free of disease in the marginal system. RIGHT CORONARY ARTERY: Dominant artery, gives rise to PDA, free of disease. LV: LV gram was performed which shows normal wall motion, normal systolic function. ABDOMINAL AORTA: The catheter was pulled to level of the renals. Aortofemoral runoff was performed. The abdominal aorta shows some mild aneurysmal dilatation with no evidence of dissection or true aneurysm. The right internal iliac has a tight better than 90% stenosis with a marked shelf-like lesion, right femoral systems deep superficial and common right superficial shows some disease distally of no more than 50%. LEFT SYSTEM: Left internal iliac, external, and common is free of disease. Left femoral system including left common superficial and deep, smooth-walled with 3-vessel runoff. PLAN: Intervention to the right iliac momentarily. DESCRIPTION OF PROCEDURE: A 5-Mauritian sheath was exchanged for a 6-Mauritian sheath. We then deployed two 7 x 18 stents up to 8 atmospheres each 45 seconds. Final angiography shows excellent resolution of 98% plus stenosis of the right internal iliac. There is no significant residual. Sheath closed with ExoSeal device. The patient previously on Plavix. TRANSINT:[id number] Voice Confirmation ID: [id number] DOCUMENT ID: [id number] 04/26/2019 Edited per nohemi Pulliam. OPERATIVE REPORT [id number] KENDRA BARRY GREGORY A MD at 1428 CC: [id number] DICTATION DATE: 04/21/19 161 FOOD SAFETY TECHNICIAN: 04/21/192121 DIS IN 04/22/19 [place] [id number] [place] [id number]
== END 2019-04-22 11:18 | disposition home or self-care (01) | DRG 38 ==
LOC: D.ER 13:38 → D.M2 17:11 → OBSVTIME 17:12 → D.M2 04-21 11:42
PROVIDERS: Family Medicine; Internal Medicine Interventional Cardiology; ADMIT Internal Medicine Nephrology; ATTEND Internal Medicine Nephrology
PROC: B3151ZZ Fluoroscopy of Bilateral Common Carotid Arteries using Low Osmolar Contrast (ICD-10-PCS; 2019-04-21)
PROC: B3181ZZ Fluoroscopy of Bilateral Internal Carotid Arteries using Low Osmolar Contrast (ICD-10-PCS; 2019-04-21)
PROC: B31C1ZZ Fluoroscopy of Bilateral External Carotid Arteries using Low Osmolar Contrast (ICD-10-PCS; 2019-04-21)
PROC: 047E3DZ Dilation of Right Internal Iliac Artery with Intraluminal Device, Percutaneous Approach (ICD-10-PCS; principal; 2019-04-21 14:18)
PROC: B2111ZZ Fluoroscopy of Multiple Coronary Arteries using Low Osmolar Contrast (ICD-10-PCS; 2019-04-21 14:18)
PROC: B2151ZZ Fluoroscopy of Left Heart using Low Osmolar Contrast (ICD-10-PCS; 2019-04-21 14:18)
PROC: 4A023N7 Measurement of Cardiac Sampling and Pressure, Left Heart, Percutaneous Approach (ICD-10-PCS; 2019-04-21 14:18)
DX: I63.231 Cerebral infarction due to unspecified occlusion or stenosis of right carotid arteries (principal); G45.3 Amaurosis fugax; F17.213 Nicotine dependence, cigarettes, with withdrawal; E11.9 Type 2 diabetes mellitus without complications; I10 Essential (primary) hypertension; E78.5 Hyperlipidemia, unspecified; K21.9 Gastro-esophageal reflux disease without esophagitis; I20.9 Angina pectoris, unspecified; Z86.73 Personal history of transient ischemic attack (TIA), and cerebral infarction without residual deficits

== ENCOUNTER 2019-05-31 09:40 | Inpatient (IN) | payer MEDICARE ==
[~2019-05-31] VITALS: Ht 175.3 cm; Wt 68.0 kg
--- NOTE | 2019-05-31 09:58 | NUR ---
FSBS= 267 MG/DL
[2019-05-31 11:01] LABS: BASOPHILS 0.2 % (0-2); EOSINOPHILS 1.5 % (0-7); HEMATOCRIT 39.6 % (42.0-54.0); HEMOGLOBIN 13.4 g/dL (13.5-17.5); IMMATURE GRANULOCYTES 0.3 % (0-5); LYMPHOCYTES 10.5 % (15-50); MCH 30.2 pg (26.0-34.0); MCHC 33.8 g/dL (31.0-37.0); MCV 89.2 fL (80.0-100.0); MEAN PLATELET VOLUME 9.7 fL (7.4-10.4); MONOCYTES 11.1 % (2-11); NEUTROPHILS 76.4 % (40-80); RBC 4.44 10x6/uL (4.20-6.10); RDW 13.6 % (11.5-14.5); WBC 11.7 10x3/uL (4.8-10.8)
[2019-05-31 11:02] LABS: PLATELET COUNT 285 10x3/uL (130-400)
[2019-05-31 11:15] LABS: ALBUMIN 3.5 g/dL (3.4-5.0); ANION GAP 16.5 mmol/L (8-16); BILIRUBIN - TOTAL 0.48 mg/dL (0.2-1.3); CALCIUM 9.1 mg/dL (8.5-10.1); CARBON DIOXIDE 26.7 mmol/L (21.0-32.0); CREATININE - SERUM 1.1 mg/dL (0.6-1.3); POTASSIUM - SERUM 4.2 mmol/L (3.5-5.1); PROTEIN - SERUM 8.7 g/dL (6.4-8.2)
[2019-05-31] MEDS ORDERED: CRESTOR40 MG PO (15:08)
[2019-05-31 15:13] VITALS: BP 152/78
--- NOTE | 2019-05-31 15:25 | MORECARE ---
CASE MANAGEMENT DISCHARGE SUMMARY PATIENT: KENDRA BARRY UNIT: [id number] ADM DATE: 05/31/19 AGE: 54 : 63 SEX: M ROOM/BED: D.1212 AUTHOR: [place]STON[employer] PHYSICIAN: REFERRING PHYSICIAN: TARAS BYRNES MD DATE OF SERVICE: 05/31/19 Discharge Plan Patient Name: KENDRA BARRY Facility: [facility]:[place] : 1965 Planned Disposition: Home Anticipated Discharge Date: 06/02/19 Discharge Date: Expected LOS: 2 Initial Reviewer: [email or web address] Initial Review Date: 05/31/2019 Generated: 05/31/19 4:24 pm DCP- Discharge Planning Updated by [email or web address]: Gretchen Pena on 05/31/19 2:[address] DC PLAN: Return home with independently. ANTICIPATED DC NEEDS: Denied dc needs. CM met with patient to complete initial dc planning assessment. CM educated patient on the CM role and verbal consent given by patient to complete assessment. CM verified patient's address, phone number, and emergency contact phone numbers. Patient lives at at home with his and reports he is independent in his care. At discharge patient plans to return home and feels this is a safe discharge. CM discussed availability of home health, rehab services, and medical equipment. Patient denied known discharge needs at this time. Patient reports his will transport him home at time of discharge. CM will continue to follow and will assist as needed with dc plans/needs. Gretchen Pena RN, [facility] DCPIA - Discharge Planning Initial Assessment Updated by [email or web address]: Gretchen Pena on 05/31/19 3:20 pm * Is the patient Alert and Oriented? Yes * How many steps to enter\exit or inside your home? Ramp * PCP Dr. Ernst * Pharmacy [facility] * Preadmission Environment Home with Family * ADLs Independent * Equipment Glucometer * List name and contact numbers for known caregivers / representatives who currently or will assist patient after discharge: Soco Barry - - [phone] * Verbal permission to speak to the caregivers and representatives has been obtained from the patient. No * Community resources currently utilized None * Additional services required to return to the preadmission environment? No * Can the patient safely return to the preadmission environment? Yes * Has this patient been hospitalized within the prior 30 days at any hospital? No Patient Name: KENDRA BARRY Page [id number] at 1525 All edits/amendments must be made on the electronic document DICTATION DATE: 05/31/191523 ELECTRICIAN FRONT: AGUSTIN 05/31/191523 RPT#: [id number] DC DATE: STATUS: ADM IN [facility] [address] [place] [address] END OF REPORT
--- NOTE | 2019-05-31 15:38 | NUR ---
NEW PATIENT ADMIT FROM ER. PATIENT IN WC ACCOMPANIED BY HOSPITAL STAFF. PATIENT WITH RT EYE RED AND EDEMATOUS. COMPLETED ADMISSION HISTORY AND ASSESMENT. MEDICATED PATIENT PER MAR WITH MORPHINE 2 MG IV. PATIENT TOLERATED WELL. PATIENT ORIENTATED TO ROOM AND CALL LIGHT . VSS. MOTHER AND SISTER AT BS. WILL CONTINUE TO MONITOR. SR UP X 2 BED IN LOW POSTIION AND CALL LIGHT IN REACH.
[2019-05-31 19:18] VITALS: BP 143/88
--- NOTE | 2019-05-31 19:32 | NUR ---
EVENING ROUNDS COMPLETED. VSS, AAOX3, SPOUSE AT BEDSIDE. PT RIGHT EYE APPEARS REDDENED, WITH MILD INFLAMATION. PT DENIES APAIN AT THIS TIME. SKIN APPEARS DRY AND SCALY. PT DENIES ANY FURTHER NEEDS AT THIS TIME. WILL CPOC.
--- NOTE | 2019-05-31 21:22 | NUR ---
FSBS 158. PT REFUSED INSULIN AT THIS TIME.
[2019-05-31 23:43] VITALS: BP 125/73
[2019-06-01 04:00] VITALS: BP 150/88
[2019-06-01 07:08] LABS: BASOPHILS 0.3 % (0-2); EOSINOPHILS 1.8 % (0-7); HEMATOCRIT 37.6 % (42.0-54.0); HEMOGLOBIN 12.7 g/dL (13.5-17.5); IMMATURE GRANULOCYTES 0.1 % (0-5); LYMPHOCYTES 15.1 % (15-50); MCHC 33.8 g/dL (31.0-37.0); MCV 88.9 fL (80.0-100.0); MEAN PLATELET VOLUME 9.9 fL (7.4-10.4); NEUTROPHILS 71.7 % (40-80); PLATELET COUNT 288 10x3/uL (130-400); RBC 4.23 10x6/uL (4.20-6.10); RDW 13.6 % (11.5-14.5); WBC 9.8 10x3/uL (4.8-10.8)
--- NOTE | 2019-06-01 07:10 | NUR ---
REPORT RECEIVED FROM LEAD RECOVERER AND PATIENT CARE ASSUMED. PATIENT LAYING ON RIGHT SIDE AWAKE, ALERT AND ORIENTED X 4. PATIENT IS STABLE AND VSS. RT EYE IS LESS RED TODAY. PATIENT DENIES ANY NEEDS OR PAIN. WILL CONTINUE WITH PLAN OF CARE. AT BS. SR UP X 2 BED IN LOW POSITION AND CALL LIGHT IN REACH.
[2019-06-01 07:45] LABS: ALBUMIN 3.2 g/dL (3.4-5.0); ALKALINE PHOSPHATASE 145 U/L (46-116); ALT (SGPT) 16 U/L (10-68); BILIRUBIN - TOTAL 0.43 mg/dL (0.2-1.3); CALCIUM 9.2 mg/dL (8.5-10.1); CARBON DIOXIDE 29.5 mmol/L (21.0-32.0); CHLORIDE - SERUM 97 mmol/L (98-107); CREATININE - SERUM 0.9 mg/dL (0.6-1.3); PHOSPHOROUS 2.8 mg/dL (2.5-4.9); POTASSIUM - SERUM 3.7 mmol/L (3.5-5.1); PROTEIN - SERUM 8.3 g/dL (6.4-8.2); SODIUM 136 mmol/L (136-145); eGFR NON AFRICAN AMERICAN > 90 mL/min (90-120)
--- NOTE | 2019-06-01 07:45 | NUR ---
GENEVIEVE MARTINEZ ON UNIT.
[2019-06-01 07:49] VITALS: BP 150/84
[2019-06-01 07:52] LABS: CALC OSMOLALITY 275 mosm/kg (275-300); GLUCOSE 180 mg/dL (74-106); UREA NITROGEN 10 mg/dL (7-18)
[2019-06-01 10:03] LABS: % SATURATION 8 % (15-55); IRON 28 ug/dl (35-150); TOTAL IRON BIND CAPACITY 319 ug/dl (260-445); UNSAT IRON BIND CAPACITY 291 ug/dl (150-375)
--- NOTE | 2019-06-01 12:00 | NUR ---
PATIENT AWAKE AND TEARFUL. PATIENT COMPLAINS OF PAIN TO FOOT AND DOES NOT WANT TO BE IN HOSPITAL. SPENT SEVERAL MINUTES GIVING PATIENT REASSURANCE. MEDICATED PATIENT WITH MORPHINE PER MAR. PATIENT UP TO SHOWER AND COMPLETE LINEN CHANGE. PATIENT STATES SHE IS FEELING BETTER AND THANKS THIS NURSE HELPING HER AND GOOD CARE. WILL CONTINUE TO MONITOR. SR UP X 2 BED IN LOW POSITION AND CALL LIGHT IN REACH.
[2019-06-01 12:23] LABS: UDS - AMPHET NEGATIVE QUAL (NEGATIVE); UDS - BARB NEGATIVE QUAL (NEGATIVE); UDS - BENZO NEGATIVE QUAL (NEGATIVE); UDS - COCAINE NEGATIVE QUAL (NEGATIVE); UDS - OPIATE POSITIVE QUAL (NEGATIVE); UDS - PCP NEGATIVE QUAL (NEGATIVE); UDS - THC NEGATIVE QUAL (NEGATIVE)
[2019-06-01 12:30] LABS: APPEARANCE CLEAR (CLEAR); COLOR STRAW (YELLOW)
[2019-06-01 12:31] LABS: BILIRUBIN NEGATIVE (NEGATIVE); GLUCOSE NEGATIVE (NEGATIVE); KETONE SMALL mg/dL (NEGATIVE); NITRITE NEGATIVE (NEGATIVE); PROTEIN 1+ mg/dL (NEGATIVE); SPECIFIC GRAVITY 1.015 (1.005-1.020); UROBILINOGEN NORMAL (NORMAL)
[2019-06-01 12:32] LABS: BACTERIA FEW /hpf (NEGATIVE); EPITHELIAL CELLS NSEEN /hpf (0-5); RED CELLS - URINE 0-5 /hpf (0-5); WHITE CELLS - URINE 0-5 /hpf (NEGATIVE)
--- NOTE | 2019-06-01 13:45 | NUR ---
PATIENT IS SITTING UP IN BED VISITING WITH AT BS. PATIENT DENIES ANY NEEDS OR PAIN. WILL CONTINUE WITH PLAN OF CARE. SR UP X 2 BED IN LOW POSITION AND CALL LIGHT IN REACH.
--- NOTE | 2019-06-01 14:49 | NUR ---
PATIENT STATES SHE HAS APPOINTMENT AT [facility] TODAY. PER PATIENT REQUEST, THIS NURSE CALLED AND SPONE WITH RADHA AND INFORMED THAT PATIENT MISSED APPT TODAY DUE TO HOSPITATILZATION.
[2019-06-01 14:59] VITALS: Ht 175.3 cm; Wt 68.0 kg
--- NOTE | 2019-06-01 17:59 | NUR ---
PATIENT IS STABLE AND VSS. PATIENT DENIES ANY NEEDS OR PAIN. AT BS. WILL CONTINUE TO MONITOR. SR UP X 2 BED IN LOW POSITION AND CALL LIGHT IN REACH.
[2019-06-01 19:15] VITALS: BP 148/77
--- NOTE | 2019-06-01 19:36 | NUR ---
EVENING ROUNDS COMPLETED. VSS, AAOX3, NO S/S OF DISTRESS. PT C/O OF PAIN IN HIS MOUTH. WILL ADMINISTER PAIN MED WHEN DUE. SKIN APPEARS DRY AND SCALY, SPOUSE AT BEDSIDE. PT HAD REQUESTED TO GO OUT TO SMOKE. NOTIFIED PT HE IS ON NICOTINE PATCH AT THIS TIME. PT DENIES ANY FURTHER NEEDS AT THIS TIME. WILL CTM.
[2019-06-02 01:22] VITALS: BP 134/88
[2019-06-02 04:34] VITALS: BP 144/75
[2019-06-02 07:09] LABS: ALBUMIN 2.8 g/dL (3.4-5.0); ALKALINE PHOSPHATASE 131 U/L (46-116); ALT (SGPT) 18 U/L (10-68); BILIRUBIN - TOTAL 0.39 mg/dL (0.2-1.3); CALC OSMOLALITY 277 mosm/kg (275-300); CALCIUM 8.5 mg/dL (8.5-10.1); CARBON DIOXIDE 31.3 mmol/L (21.0-32.0); CHLORIDE - SERUM 97 mmol/L (98-107); CREATININE - SERUM 0.9 mg/dL (0.6-1.3); POTASSIUM - SERUM 3.4 mmol/L (3.5-5.1); PROTEIN - SERUM 7.6 g/dL (6.4-8.2); SODIUM 136 mmol/L (136-145); UREA NITROGEN 10 mg/dL (7-18); eGFR NON AFRICAN AMERICAN > 90 mL/min (90-120)
[2019-06-02 07:11] LABS: GLUCOSE 232 mg/dL (74-106)
[2019-06-02 07:20] VITALS: BP 107/64
--- NOTE | 2019-06-02 07:20 | NUR ---
PT IS RESTING IN BED WITH EYES CLOSED. RESPIRATIONS ARE EVEN AND UNLABORED. PT IS EASILY AROUSED WITH VERBAL STIMULATION. UPON AROUSAL PT IS AAO X 4. IS LAYING IN HOSPITAL BED WITH PT AT THIS TIME. PT DENIES PRESENCE OF PAIN/N/V AT THIS TIME. SLIGHT REDNESS/EDEMA NOTED TO RIGHT PERIORBITAL AREA. PT REPORTS TENDERNESS TO RIGHT MOLAR AREA INSIDE MOUTH. PT DENIES PAIN MEDICATION NEEDS AT THIS TIME. BED IS IN THE LOWEST POSITION. CALL LIGHT AND BEDSIDE TABLE ARE WITHIN REACH. SIDE RAILS X 2. PT DENIES FURTHER NEEDS. WILL CONT TO MONITOR.
[2019-06-02] MEDS ORDERED: CLEOCIN HCL300 MG PO (09:15)
[2019-06-02 09:20] LABS: BASOPHILS 0.4 % (0-2); EOSINOPHILS 3.4 % (0-7); HEMATOCRIT 33.7 % (42.0-54.0); HEMOGLOBIN 11.2 g/dL (13.5-17.5); IMMATURE GRANULOCYTES 0.1 % (0-5); MCH 29.6 pg (26.0-34.0); MCHC 33.2 g/dL (31.0-37.0); MCV 89.2 fL (80.0-100.0); MEAN PLATELET VOLUME 9.8 fL (7.4-10.4); MONOCYTES 10.4 % (2-11); NEUTROPHILS 67.7 % (40-80); PLATELET COUNT 294 10x3/uL (130-400); RBC 3.78 10x6/uL (4.20-6.10); RDW 13.4 % (11.5-14.5); WBC 8.2 10x3/uL (4.8-10.8)
[2019-06-02 12:14] VITALS: BP 152/76
--- NOTE | 2019-06-02 13:00 | NUR ---
ALL DISCHARGE INSTRUCTIONS COVERED WITH PT AND PT . PT AND PT DENY FURTHER QUESTIONS/CONCERNS/NEEDS AT THIS TIME. PT REQUESTS THAT PT SIGN DISCHARGE PAPERS. ALL DISCHARGE PAPERS SIGNED. PIV TO LEFT FA REMOVED WITH CATHETER TIP INTACT. DRESSING APPLIED. PT DENIES FURTHER NEEDS. PT TO NOTIFY NURSE WHEN READY FOR TRANSPORT FROM ROOM. ALL SIGNED DISCHARGE PAPERS PLACED IN PT CHART.
--- NOTE | 2019-06-02 13:10 | NUR ---
PT TRANSPORTED FROM ROOM VIA WHEELCHAIR ESCORTED BY [facility] STA[facility]. PT THANKS THIS NURSE FOR CARE AND DENIES FURTHER QUESTIONS/NEEDS/CONCERNS.
--- NOTE | 2019-06-02 14:37 | MORECARE ---
CASE MANAGEMENT DISCHARGE SUMMARY PATIENT: KENDRA BARRY UNIT: [id number] ADM DATE: 05/31/19 AGE: 54 : 63 SEX: M ROOM/BED: D.1212 AUTHOR: FRED CONRAD PHYSICIAN: REFERRING PHYSICIAN: TARAS BYRNES MD DATE OF SERVICE: 06/02/19 Discharge Plan Patient Name: KENDRA BARRY Facility: [facility]:[place] : 1965 Planned Disposition: Home Anticipated Discharge Date: 06/02/19 Discharge Date: 06/02/2019 Expected LOS: 2 Initial Reviewer: [email or web address] Initial Review Date: 05/31/2019 Generated: 06/02/19 3:37 pm Comments DCP- Discharge Planning Updated by [email or web address]: Lay Stark on 06/02/19 1:[address] Patient Name: KENDRA BARRY Encounter No: [id number] : 1965 Primary Insurance: MEDICARE A & B Anticipated DC Date: 06-02-2019 Planned Disposition: Home External Planned Provider: : DCP follow-up note: Patient and family in agreement with discharge plan. No changes to plan. Case management will follow and assist as needed. Lay Stark DCP- Discharge Planning Updated by [email or web address]: Gretchen Pena on 05/31/19 2:[address] DC PLAN: Return home with independently. ANTICIPATED DC NEEDS: Denied dc needs. CM met with patient to complete initial dc planning assessment. CM educated patient on the CM role and verbal consent given by patient to complete assessment. CM verified patient's address, phone number, and emergency contact phone numbers. Patient lives at at home with his and reports he is independent in his care. At discharge patient plans to return home and feels this is a safe discharge. CM discussed availability of home health, rehab services, and medical equipment. Patient denied known discharge needs at this time. Patient reports his will transport him home at time of discharge. CM will continue to follow and will assist as needed with dc plans/needs. Gretchen Pean RN, [facility] DCPIA - Discharge Planning Initial Assessment Updated by [email or web address]: Gretchen Pena on 05/31/19 3:20 pm * Is the patient Alert and Oriented? Yes * How many steps to enter\exit or inside your home? Ramp * PCP Dr. Ernst * Pharmacy [facility] [address] * Preadmission Environment Home with Family * ADLs Independent * Equipment Glucometer * List name and contact numbers for known caregivers / representatives who currently or will assist patient after discharge: Soco Barry - - [phone] * Verbal permission to speak to the caregivers and representatives has been obtained from the patient. No * Community resources currently utilized None * Additional services required to return to the preadmission environment? No * Can the patient safely return to the preadmission environment? Yes * Has this patient been hospitalized within the prior 30 days at any hospital? No Last DP export: 05/31/19 2:24 p Patient Name: KENDRA BARRY Page [id number] at 1437 All edits/amendments must be made on the electronic document DICTATION DATE: 06/02/191436 ENROBING MACHINE CORDER: AGUSTIN 06/02/191436 RPT#: [id number] DC DATE:06/02/19 STATUS: DIS IN [facility] [address] [place] [address] END OF REPORT
== END 2019-06-02 13:12 | disposition home or self-care (01) | DRG 158 ==
LOC: D.ER 09:40 → D.M3 11:07
PROVIDERS: Family Medicine; ADMIT Internal Medicine Nephrology; ATTEND Internal Medicine Nephrology
DX: K04.7 Periapical abscess without sinus (principal); L03.213 Periorbital cellulitis; F17.213 Nicotine dependence, cigarettes, with withdrawal; M27.2 Inflammatory conditions of jaws; D64.9 Anemia, unspecified; I10 Essential (primary) hypertension; E78.5 Hyperlipidemia, unspecified; E11.9 Type 2 diabetes mellitus without complications; K21.9 Gastro-esophageal reflux disease without esophagitis

== ENCOUNTER 2019-07-23 18:55 | Emergency (ER) | payer MEDICARE ==
[~2019-07-23] VITALS: Ht 175.3 cm; Wt 68.5 kg
[~2019-07-23 18:55] MED LIST changes: +CLEOCIN HCL300 MG PO
[2019-07-23 19:18] VITALS: Ht 175.3 cm; Wt 68.5 kg
[2019-07-23] MEDS ORDERED: FISH OIL 1,0001 CA1 PO (19:23)
[2019-07-23] MEDS ORDERED: GEMFIBROZIL600 MG PO (19:23)
[2019-07-23] MEDS ORDERED: WELLBUTRIN XL150 M1 PO (19:23)
[2019-07-23] MEDS ORDERED: FEXOFENADINE H180 MG PO (19:23)
[2019-07-23] MEDS ORDERED: ALTACE1.25 MG PO (19:24)
[2019-07-23 19:39] LABS: BASOPHILS 0.2 % (0-2); EOSINOPHILS 2.2 % (0-7); HEMOGLOBIN 12.7 g/dL (13.5-17.5); IMMATURE GRANULOCYTES 0.2 % (0-5); LYMPHOCYTES 28.3 % (15-50); MCH 29.9 pg (26.0-34.0); MCHC 33.4 g/dL (31.0-37.0); MCV 89.4 fL (80.0-100.0); MEAN PLATELET VOLUME 9.8 fL (7.4-10.4); MONOCYTES 10.1 % (2-11); PLATELET COUNT 253 10x3/uL (130-400); RBC 4.25 10x6/uL (4.20-6.10); RDW 14.2 % (11.5-14.5)
[2019-07-23 19:53] LABS: CALC OSMOLALITY 285 mosm/kg (275-300); CALCIUM 9.8 mg/dL (8.5-10.1); CARBON DIOXIDE 27.2 mmol/L (21.0-32.0); CHLORIDE - SERUM 103 mmol/L (98-107); CREATININE - SERUM 0.9 mg/dL (0.6-1.3); GLUCOSE 185 mg/dL (74-106); POTASSIUM - SERUM 3.7 mmol/L (3.5-5.1); SODIUM 140 mmol/L (136-145); UREA NITROGEN 18 mg/dL (7-18); eGFR NON AFRICAN AMERICAN > 90 mL/min (90-120)
[2019-07-23 20:00] LABS: ALBUMIN 4.3 g/dL (3.4-5.0); ALKALINE PHOSPHATASE 175 U/L (46-116); ALT (SGPT) 41 U/L (10-68); BILIRUBIN - TOTAL 0.34 mg/dL (0.2-1.3); PROTEIN - SERUM 8.2 g/dL (6.4-8.2)
[2019-07-23 20:07] LABS: APPEARANCE CLEAR (CLEAR); BILIRUBIN NEGATIVE (NEGATIVE); COLOR STRAW (YELLOW); GLUCOSE NEGATIVE (NEGATIVE); KETONE NEGATIVE (NEGATIVE); NITRITE NEGATIVE (NEGATIVE); PROTEIN TRACE mg/dL (NEGATIVE); SPECIFIC GRAVITY 1.015 (1.005-1.020); UROBILINOGEN NORMAL (NORMAL)
[2019-07-23 20:09] LABS: BACTERIA FEW /hpf (NEGATIVE); RED CELLS - URINE 0-5 /hpf (0-5); WHITE CELLS - URINE RARE /hpf (NEGATIVE)
[2019-07-23] MEDS ORDERED: HYDROCODON-ACE1 EA10 PO (21:16)
[2019-07-23 21:55] VITALS: BP 138/75
== END 2019-07-23 21:55 | disposition home or self-care (01) ==
LOC: D.ER 18:55
PROVIDERS: Family Medicine
DX: M79.18 Myalgia, other site (principal); V89.0XXA Person injured in unspecified motor-vehicle accident, nontraffic, initial encounter; Y93.9 Activity, unspecified; Y92.9 Unspecified place or not applicable; M25.552 Pain in left hip; R07.81 Pleurodynia; M25.532 Pain in left wrist; M54.5 Low back pain; I10 Essential (primary) hypertension; Z72.0 Tobacco use; E11.9 Type 2 diabetes mellitus without complications; Z79.84 Long term (current) use of oral hypoglycemic drugs; Z86.73 Personal history of transient ischemic attack (TIA), and cerebral infarction without residual deficits

== ENCOUNTER 2020-04-26 19:02 | Emergency (ER) | payer MEDICARE ==
[~2020-04-26] VITALS: Ht 175.3 cm; Wt 68.2 kg
[~2020-04-26 19:02] MED LIST changes: +ALTACE1.25 MG PO; +FEXOFENADINE H180 MG PO; +FISH OIL 1,0001 CA1 PO; +HYDROCODON-ACE1 EA10 PO; +WELLBUTRIN XL150 M1 PO
[2020-04-26 19:08] VITALS: Ht 175.3 cm; Wt 68.2 kg
[2020-04-26 20:00] LABS: ANION GAP 11.5 mmol/L (8-16); CREATININE - SERUM 1.1 mg/dL (0.6-1.3); POTASSIUM - SERUM 3.5 mmol/L (3.5-5.1)
[2020-04-26 20:06] LABS: ALBUMIN 4.3 g/dL (3.4-5.0); BILIRUBIN - TOTAL 0.32 mg/dL (0.2-1.3); PROTEIN - SERUM 7.9 g/dL (6.4-8.2)
[2020-04-26 20:15] LABS: BASOPHILS 0.6 % (0-2); HEMATOCRIT 41.1 % (42.0-54.0); HEMOGLOBIN 13.9 g/dL (13.5-17.5); IMMATURE GRANULOCYTES 0.1 % (0-5); LYMPHOCYTES 38.7 % (15-50); MCH 30.2 pg (26.0-34.0); MCHC 33.8 g/dL (31.0-37.0); MCV 89.2 fL (80.0-100.0); MEAN PLATELET VOLUME 10.1 fL (7.4-10.4); MONOCYTES 8.5 % (2-11); NEUTROPHILS 48.1 % (40-80); PLATELET COUNT 223 10x3/uL (130-400); RBC 4.61 10x6/uL (4.20-6.10); RDW 13.5 % (11.5-14.5)
[2020-04-26 20:47] LABS: BILIRUBIN NEGATIVE (NEGATIVE); KETONE NEGATIVE (NEGATIVE); NITRITE NEGATIVE (NEGATIVE); UROBILINOGEN NORMAL (NORMAL)
[2020-04-26] MEDS ORDERED: CYCLOBENZAPRINE5 MG PO (20:49)
[2020-04-26 21:04] VITALS: BP 139/90
== END 2020-04-26 21:04 | disposition home or self-care (01) ==
LOC: D.ER 19:02
PROVIDERS: Family Medicine
DX: R10.31 Right lower quadrant pain (principal); E11.9 Type 2 diabetes mellitus without complications; I10 Essential (primary) hypertension; K21.9 Gastro-esophageal reflux disease without esophagitis; E78.5 Hyperlipidemia, unspecified; Z86.73 Personal history of transient ischemic attack (TIA), and cerebral infarction without residual deficits; Z72.0 Tobacco use; Z79.84 Long term (current) use of oral hypoglycemic drugs

== ENCOUNTER → 2020-05-22 13:54 | Outpatient (CLI) | payer MEDICARE ==
[2020-04-26 19:08] VITALS: BMI 22.2
[~2020-05-22 13:54] MED LIST changes: +CYCLOBENZAPRINE5 MG PO
--- NOTE | 2020-05-23 16:55 | EC ---
PATIENT:KENDRA BARRY DATE OF SERVICE: 05/22/20 SEX: M MEDICAL RECORD: [id number] DATE OF : 63 LOCATION:D.[facility] AGE OF PATIENT: 55 ADMISSION DATE: 05/22/20 REFERRING PHYSICIAN: INTERPRETING PHYSICIAN: LAUREL BABCOCK MD ECHOCARDIOGRAM REPORT ECHO CHARGES 4 ECHO COMPLETE Date: 05/22/20 CLINICAL DIAGNOSIS: ASSESS EF AND VALVES HX OF CVA/PVD/HTN ECHOCARDIOGRAPHIC MEASUREMENTS (adult normal given) AC root (d.<3.7cm) 3.1 cm LV Septum d (<1.2 cm> 1.3 cm Valve Excursion 1.6 cm LV Septum (systole) 1.4 cm Left Atria (s.<4.0cm> 3.5 cm LVPW d(<1.2cm) 1.3 cm RV (d.<2.3cm) 2.8 cm LVPW (sytole) 1.5 cm LV diastole(<5.6CM) 5.1 cm MV E-F(>70mm/sec) cm LV systole 4.0 cm LVOT Diameter 2.1 cm MV exc.(>10mm) 1.3 cm Est.ejection fraction (50-75%) % DOPPLER: LVIT cm/sec A 65.0 cm/sec E 73.0 cm/sec LA cm/sec RVSP 17 mmHg LVOT 72 cm/sec AOP1/2T m/s Asc. Ao 96 cm/sec RVOT 82 cm/sec RA cm/sec PA 103 cm/sec AV Gradient Peak 3.70 mmHg AV Mean 1.74 mmHg AV Area 2.6 cm MV Gradient Peak 2.17 mmHg MV Mean 0.97 mmHg MV Area cm COMMENTS: Yarn Spinner: 2 VERÓNICA TALAVERA Steel Fixer: 3 Dr. Escobar TAPE# PACS Pericardial Effusion N DATE OF SERVICE: Adequate 2D, color-flow imaging, spectral Doppler, and M-Mode Mild LVH. LV internal dimensions are normal. Wall motion is normal. EF is greater than or equal to 55%. Aortic valve is tricuspid. No evidence of stenosis by Doppler interrogation. Left atrium is normal at 3.5 cm. Mitral valve shows no prolapse. Trivial MR. Right-sided chambers are grossly normal. Trivial TR. ECHOCARDIOGRAM REPORT [id number] KENDRA BARRY [facility] TRANSINT:[id number] Voice Confirmation ID: [id number] DOCUMENT ID: [id number] LAUREL BABCOCK MD at 1655 CC: [id number] DICTATION DATE: 05/23/20826 HARDNESS INSPECTOR: 05/23/20 1652 DEP CLI 05/22/20 [place] [id number] [place] [id number]
== END | disposition home or self-care (01) ==
LOC: D.HCCECHO 05-17 11:00
PROVIDERS: ATTEND Internal Medicine Interventional Cardiology
DX: I10 Essential (primary) hypertension (principal)

== ENCOUNTER 2020-11-03 17:29 | Observation (INO) | payer MEDICARE ==
[~2020-11-03] VITALS: Ht 175.3 cm; Wt 66.2 kg
--- NOTE | ~2020-11-03 | HEMODYNAMI ---
PATIENT:KENDRA BARRY MEDICAL RECORD: [id number] : 63 LOCATION:[facility] D.[address] [facility]# [id number] ADMISSION DATE: 11/03/20 Generatedon:18:54 Patient name: KENDRA BARRY Patient #: [id number] N: [id number] : 1965 Date of study: 11/05/2020 Page: Of Hemodynamic Procedure Report Patient Data Patient Demographics Procedure consent was obtained First Name: KENDRA Gender: Male Last Name: ASHA : 1965 Middle Initial: EDWARD Age: 55 year(s) Patient #: [id number] Race: SSN: [id number] Additional ID: [id number] Contact details Address: [address] [place] [address] State: [place] City: [place] Zip code: [address] Past Medical History Allergies: No known allergies Admission Admission Data Admission Date: 11/03/2020 Admission Time: 19:02 Arrival Date: 11/05/2020 Arrival Time: 0:00 Admit Source: Other Insurance Payor: Medicare Room #: D.2115 [facility] #: [id number] Height (in.): 69 BSA: 1.81 (m2) Height (cm.): 175.26 BMI: 21.6 (kg/m2) Weight (lbs.): 146.3 Weight (kg.): 66.36 Lab Results Lab Result Date: 11/05/2020 Lab Result Time: 0:00 Biochemistry Name Units Result Min Max BUN mg/dl 9 --(*---)-- 7 18 Creatinine mg/dl 0.8 --(-*--)-- 0.6 1.3 eGFR ml/min 90 --(*---)-- 90 120 NONAFRICAN CBC Name Units Result Min Max Hematocrit % 44.8 --(*---)-- 42 54 Hemoglobin g/dl 15.4 --(-*--)-- 13.5 17.5 Procedure Procedure Types Cath Procedure Diagnostic Procedure [facility] w/Coronaries Aortic Root Angiography Sedation Charges Moderate Sedation 10-24 minutes Peripheral Cath Diagnostic Procedure Abd/Extremity Aortagram Procedure Description Procedure Date Procedure Date: 11/05/2020 Procedure Start Time: 8:36 Procedure End Time: 8:53 Procedure Staff Name Function Molina Miller MD Performing Physician Chiqui Cao RN Nurse Lauren Patel RT Monitor Marguerite Huff RT Scrub Procedure Data Cath Procedure Fluoroscopy Diagnostic fluoroscopy Total fluoroscopy Time: 1.9 time: 1.9 min min Diagnostic fluoroscopy Total fluoroscopy dose: 343 dose: 343 mGy mGy Contrast Material Contrast Material Type Amount (ml) Isovue 370 111 Entry Location Entry Primary Successful Side Size Upsize Upsize Entry Closure Succes sful Closure Location (Fr) 1 (Fr) 2 (Fr) Remarks Device Remarks Femoral Right 5 Fr Exoseal artery Estimated blood loss: 5 ml Diagnostic catheters Device Type Used For End Catheter Placement MULTIPACK JL 4.0 5Fr Procedure catheter MULTIPACK 3DRC 5Fr Procedure catheter MULTIPACK Pigtail 5 Fr Procedure catheter Procedure Complications No complications Procedure Medications Medication Administration Route Dosage Oxygen etCO2 Nasal cannula 2 l/min Lidocaine 2% added to field 20 Heparin Flush Bag added to field 2 bags (1000units/500ml NS) 0.9% NaCl I.V. 100 ml/hr Versed I.V. 1 mg Fentanyl I.V. 50 mcg Versed I.V. 1 mg Fentanyl I.V. 50 mcg Versed I.V. 1 mg Fentanyl I.V. 50 mcg Versed I.V. 1 mg Hemodynamics Rest BSA: 1.81 (m2) HGB: 15.4 (g/dl) O2 Consumption: Estimated: 211.91 (ml/min) O2 Co nsumption indexed: Estimated:117.08 (ml/min/m) Heart Rate: 67 (bpm) Pressure Samples Time Site Value (mmHg) Purpose Heart Use Rate(bpm) 8:44 LV 132/-6,20 Snapshot 74 8:44 AO 141/53(90) Pullback 77 8:44 LV 116/-6,17 Pullback 77 Gradients Valve Time Site 1 Site 2 Mean SEP/DFP Peak To Heart Use (mmHg) (sec/min) Peak Rate (mmHg) (bpm) Aortic 8:44 LV AO 0 7 0 77 116/-6,17 141/53(90) Calculations Valve P-P Mean Valve Index Valve Source Name Gradient Area Flow (cm2) Aortic 0 0 0 0 Snapshots Pre Cath Intra NCS Post Cath Vital Signs Time Heart Resp SPO2 etCO2 NIBP (mmHg) Rhythm Pain Sedation Rate (ipm) (%) (mmHg) Status Level (bpm) 8:24:03 73 17 100 9.7 154/87(129) NSR 0 (11) 10(A) , No pain 8:28:19 71 13 99 0 133/87(112) NSR 0 (11) 10(A) , No pain 8:32:33 70 11 99 0 119/71(96) NSR 0 (11) 10(A) , No pain 8:36:41 74 10 99 23.9 131/77(99) NSR 0 (11) 9(A) , No pain 8:40:55 68 11 98 29.1 114/71(89) NSR 0 (11) 9(A) , No pain 8:45:03 77 10 98 34.3 118/72(85) NSR 0 (11) 9(A) , No pain 8:49:13 77 14 99 2.9 117/70(96) NSR 0 (11) 10(A) , No pain 8:53:20 73 9 99 4.4 123/73(90) NSR 0 (11) 10(A) , No pain Medications Time Medication Route Dose Verified Delivered Reason Notes Effe ctiveness by by 8:26:23 Oxygen etCO2 2 Molina Buffie used for Nasal l/min Paul Cao RN procedure cannula 8:26:30 Lidocaine 2% added 20ml Molina Molina for local to vial Paul Miller MD anesthetic field 8:26:37 Heparin Flush added 2 Molina Molina used for Bag to bags Paul Miller MD procedure (1000units/500ml field NS) 8:26:47 0.9% NaCl I.V. 100 Molina Buffie Per ml/hr Paul Cao RN physician 8:29:22 Versed I.V. 1 mg Molina Buffie for Paul Cao RN sedation 8:29:28 Fentanyl I.V. 50 Molina Buffie for mcg Paul Cao RN sedation 8:33:40 Versed I.V. 1 mg Molina Buffie for Paul Cao RN sedation 8:33:44 Fentanyl I.V. 50 Molina Buffie for mcg Paul Cao RN sedation 8:37:48 Versed I.V. 1 mg Molina Buffie for Paul Cao RN sedation 8:37:52 Fentanyl I.V. 50 Molina Buffie for mcg Paul Cao RN sedation 8:41:53 Versed I.V. 1 mg Molina Buffie for Paul Cao RN sedation Procedure Log Time Note 7:52:22 Informed consent obtained and on chart 7:52:31 Diagnostic Cath Status : Elective 7:52:43 Arrival Date: 11/05/2020 12:00:00 AM 7:52:44 Admit Source: Other 7:52:48 Patient Height : 69 inches 7:52:52 Patient Weight : 146.3 lbs 7:53:07 Insurance Payor : Medicare 7:53:55 Lab Result : eGFR NONAFRICAN 90 ml/min 7:53:55 Lab Result : Hemoglobin 15.4 g/dl 7:53:55 Lab Result : BUN 9 mg/dl 7:53:55 Lab Result : Creatinine 0.8 mg/dl 7:53:55 Lab Result : Hematocrit 44.8 % 7:55:17 ACC Patient presents with Unstable Angina CCS Anginal Class 2--Slight limitation of ordinary activity. 7:55:22 Procedure Status Urgent Heart Cath (IP). 7:55:24 Time tracking: Regular hours (M-F 7:00 - 5:00) 7:55:28 Plan of Care:Hemodynamics will remain stable., Cardiac rhythm will remain stable., Comfort level will be maintained., Respiratory function will remain adequate., Patient/ family verbilizes understanding of procedure., Procedure tolerated without complication., Recovers from procedure without complications.. 7:55:37 H&P Date Dictated: 11/03/2020 Within 30 days and on chart.. 7:55:39 Pre-procedure instructions explained to patient. 7:55:39 Pre-op teaching completed and patient verbalized understanding. 7:55:40 Family unavailable. 7:55:42 Patient NPO since Midnight. 7:55:48 Patient allergic to No known allergies 7:55:55 Lab results completed and on chart. 7:55:58 Stress Test: no; N/A ? 7:56:03 Alarms reviewed by R. N. 7:56:03 Sharps counted by scrub and verified by R.N. 8:09:47 Chiqui Cao RN sent for patient. Start room use. 8:12:32 Patient received from Med II to CCL 1 Alert and oriented. Tansferred to table in Supine position. 8:12:34 Warm blankets applied, and tonie hugger turned on for patient comfort. 8:12:35 Correct patient and procedure confirmed by team. 8:12:35 ECG and BP/O2 sat monitors applied to patient. 8:12:38 Is the patient allergic to Iodine/contrast media? No. 8:12:41 Was the patient premedicated? Yes 8:12:46 Is patient on blood thinner?Yes 8:12:48 ACC The patient was administered the following blood thiners within the last 24 hours: ACCPlavix 8:12:51 Patient diabetic? Yes. 8:12:53 If diabetic: On Metformin? Yes 8:21:57 If on Metformin: Last Dose? 11/04/2020 8:22:04 ----Pre-sedation anethsthesia assessment.---- 8:22:06 Previous problem with sedation/anesthesia? No ? 8:22:08 Snore? Yes 8:22:09 Sleep apnea? No 8:22:11 Deviated septum? No 8:22:12 Opens mouth fully? Yes 8:22:13 Sticks out tongue? Yes 8:22:21 Airway obstruction? Yes ASTHMA, COPD 8:22:27 Modified Bo's test Ulnar > 7 seconds. 8:22:30 Pre procedure: right dorsailis pedis pulse 1+ Palpable, but thready & weak; easily obliterated 8:22:40 IV patent on arrival in right forearm with 0.9% NaCl at O. 8:22:46 Right groin area was prepped with chlora-prep and draped in sterile fashion 8:22:51 Vital chart was started 8:22:52 Full Disclosure recording started 8:22:54 Baseline sample Acquired. 8:23:01 Rhythm: sinus rhythm , w/ ST elevation 8:23:07 Use device set Femoral Dx 8:23:09 ACIST Syringe (74010) opened to sterile field. 8:23:10 Bag Decanter () opened to sterile field. 8:23:10 Medline Cath Pack ([id number]) opened to sterile field. 8:23:11 ACIST Hand Control (48865) opened to sterile field. 8:23:12 ACIST Manifold (74112) opened to sterile field. 8:23:13 DIAGNOSTIC Multipack 5Fr catheter set ([id number]) opened to sterile field. 8:23:19 SHEATH 5FR [employer] ([id number]) opened to sterile field. 8:23:21 EMERALD Guide Wire (195-281) opened to sterile field. 8:23:24 Tegaderm 4 x 4 (1626W) opened to sterile field. 8:25:11 Risk of Mortality: 0.1 8:25:15 Risk of blood transfusion: 0.3 8:25:17 Risk of GLENDA: 0.1 8:25:19 --------ALL STOP TIME OUT------ 8:25:20 Final Timeout: patient, procedure, and site verified with staff and physician. All members of the team are in agreement. 8:25:22 Right groin site verified by team. 8:25:27 Fire Safety Assessment: A--An alcohol-based skin anteseptic being used preoperatively., C--Open oxygen or nitrous oxide is being used., D--An ESU, laser, or fiber-optic light is being used. 8:25:31 Physical assessment completed. ASA score P 2 - A patient with mild systemic disease as per Molina Miller MD. 8:25:35 1) 90+ Normal kidney functon but urine findings or structural abnormalities or genetic trait point to kidney disease. 8:25:37 Maximum allowable contrast dose (3.7 X eGFR X 0.75)250 ml. 8:25:42 Sedation plan: IV Moderate Sedation Medication:Versed, Fentanyl 8:26:23 Oxygen 2 l/min etCO2 Nasal cannula was administered by Chiqui Cao RN; used for procedure; Verbal order read back and verified. 8:26:30 Lidocaine 2% 20ml vial added to field was administered by Molina Miller MD; for local anesthetic; Verbal order read back and verified. 8:26:37 Heparin Flush Bag (1000units/500ml NS) 2 bags added to field was administered by Molina Miller MD; used for procedure; Verbal order read back and verified. 8:26:47 0.9% NaCl 100 ml/hr I.V. was administered by Chiqui Cao RN; Per physician; Verbal order read back and verified. 8:29:22 Versed 1 mg I.V. was administered by Chiqui Coa RN; for sedation; Verbal order read back and verified. 8:29:28 Fentanyl 50 mcg I.V. was administered by Chiqui Cao RN; for sedation; Verbal order read back and verified. 8:33:40 Versed 1 mg I.V. was administered by Chiqui Cao RN; for sedation; Verbal order read back and verified. 8:33:44 Fentanyl 50 mcg I.V. was administered by Chiqui Cao RN; for sedation; Verbal order read back and verified. 8:35:15 Procedure started. 8:36:00 Local anesthetic to right femoral artery with Lidocaine 2% by Molina Miller MD.INITIAL ACCESS ONLY 8:37:48 Versed 1 mg I.V. was administered by Chiqui Cao RN; for sedation; Verbal order read back and verified. 8:37:52 Fentanyl 50 mcg I.V. was administered by Chiqui Cao RN; for sedation; Verbal order read back and verified. 8:38:33 A 5 Fr sheath was inserted into the Right Femoral artery 8:39:30 A MULTIPACK JL 4.0 5Fr catheter was advanced over the wire and used for Procedure. 8:40:21 LCA angiography performed. 8:40:23 Injector settings: Ml/sec: 3, Volume: 6, 8:41:35 Catheter exchanged over wire. 8:41:53 Versed 1 mg I.V. was administered by Chiqui Cao RN; for sedation; Verbal order read back and verified. 8:42:13 A MULTIPACK 3DRC 5Fr catheter was advanced over the wire and used for Procedure. 8:42:17 RCA angiography performed. 8:42:19 Injector settings: Ml/sec: 3, Volume: 6, 8:42:33 ACCDominant side:Right 8:42:56 Catheter exchanged over wire. 8:43:33 A MULTIPACK Pigtail 5 Fr catheter was advanced over the wire and used for Procedure. 8:43:53 LV gram done using WANG 8:44:27 LV hemodynamics recorded. 8:44:43 Injector settings: Ml/sec: 5, Volume: 15, 8:44:52 EF : 60 % 8:45:30 Aortic Root visualized 8:45:35 Abdominal Aortagram was performed. 8::43 Injector settings: Ml/sec: 10, Volume: 20, 8:47:05 Catheter removed. 8:47:10 EXOSEAL 5Fr (EX500) opened to sterile field. 8:47:22 Sheath removed intact; hemostasis achieved with Exoseal to the Right Femoral artery. 8:47:48 Fluoroscopy time 01.90 minutes. 8:47:55 Flurop Dose total: 343 8:47:55 Fluoroscopy dose: 343 mGy 8:48:02 Dose Area Product 06851 mGy/cm. 8:48:06 Contrast amount:Isovue 370 111ml. 8:48:42 Maximum allowable dose exceeded? No. 8:48:43 Sharps counted by scrub and verified by R.N. 8:48:49 Post-op/insertion site Right Femoral artery dressed using a 4 x 4 and Tegaderm. 8:48:55 Post right femoral artery:stable, soft, clean and dry 8:48:56 Post Procedure Pulses reassessed and unchanged 8:49:00 Procedure ended.(Physican Out) 8:49:00 Post procedure: right dorsailis pedis pulse 1+ Palpable, but thready & weak; easily obliterated. 8:49:04 Post-procedure physical assessment completed. ASA score P 2 - A patient with mild systemic disease as per Molina Miller MD. 8:49:08 Post procedure rhythm: unchanged. 8:49:11 Estimated blood loss: 5 ml 8:49:12 Post procedure instruction explained to patient.Patient verbalizes understanding. 8:49:14 Patient needs reinforcement of post procedure teaching. 8:50:39 Procedure type changed to Cath procedure, Diagnostic procedure, LHC, C w/Coronaries, Aortic Root Angiography, Sedation Charges, Moderate Sedation 10-24 minutes, Peripheral Cath Diagnostic Procedure, Abd/Extremity, Aortagram 8:53:19 Procedure and supply charges have been captured, reviewed, submitted and are correct. 8:53:23 Procedure Complication : No complications 8:53:29 [facility] Findings: mild to moderate CAD (<70%) 8:53:31 Operative report dictated upon procedure completion. 8:53:31 See physician's report for complete and final results. 8:53:33 Report given to [facility]. 8:53:36 Patient transfered to [facility] with Bed. 8:53:39 Procedure ended. 8:53:39 Full Disclosure recording stopped 8:53:46 ACC-PCI Only Patient was given prescriptions, or instructed by Molina Miller MD to start/continue the following medications upon discharge: Plavix 8:53:47 End room use (Document Last) 8:53:58 End room use (Document Last) 8:54:47 Vital chart was stopped Device Usage Item Name Manufacture Quantity Catalog Hospital Part Current Minimal L ot# / Number Charge Number Stock Stock Serial# Code ACIST Acist 1 74083 [id number] 234286 890671 20 Syringe Medical (62137) Systems Inc Bag Microtek 1 2001S 205064 11706 000169 5 Decanter Medical Inc. () Medline Medline 1 [id number] 029648 26681 263745 5 Cath Pack ([id number]) ACIST Hand Acist 1 79754 347550 997510 578337 5 Control Medical (56864) Systems Inc ACIST Acist 1 26183 116135 132666 854527 5 Manifold Medical (48286) Systems Inc DIAGNOSTIC Cardinal 1 DU8383 130606 20228 548622 30 Multipack Health 5Fr catheter set (TV1459) SHEATH 5FR [employer] 1 LRT759 401305 252091 355708 5 [employer] (ILI644) EMERALD Cardinal 1 502-455 525726 437010 980076 5 Guide Wire [facility] (502-455) Tegaderm 4 3M 1 1626W 465133 187490 145978 5 x 4 (1626W) MULTIPACK Cardinal 1 546330 5 JL 4.0 5Fr Health catheter MULTIPACK Cardinal 1 504024 5 3DRC 5Fr Health catheter MULTIPACK Cardinal 1 882838 5 Pigtail 5 Health Fr catheter EXOSEAL 5Fr Cardinal 1 EX500 078285 536599 968455 10 (EX500) Health Signature Audit [place] Stage Time Signature Unsigned Intra-Procedure 11/05/2020 Lauren Patel 8:53:58 AM RT(R) Intra-Procedure 11/05/2020 Chiqui Cao RN 8:54:17 AM Intra-Procedure 11/05/2020 Molina Miller MD 8:54:46 AM [facility] [address] [facility] [place] [address]
[2020-11-03 18:08] LABS: BASOPHILS 0.5 % (0-2); EOSINOPHILS 3.3 % (0-7); HEMATOCRIT 44.8 % (42.0-54.0); HEMOGLOBIN 15.4 g/dL (13.5-17.5); IMMATURE GRANULOCYTES 0.1 % (0-5); LYMPHOCYTE ABS# 2.27 10x3/uL (1.32-3.57); MCH 30.7 pg (26.0-34.0); MCHC 34.4 g/dL (31.0-37.0); MCV 89.2 fL (80.0-100.0); MEAN PLATELET VOLUME 9.7 fL (7.4-10.4); MONOCYTES 6.4 % (2-11); NEUTROPHIL ABS# 6.22 10x3/uL (1.78-5.38); NEUTROPHILS 65.7 % (40-80); PLATELET COUNT 257 10x3/uL (130-400); RBC 5.02 10x6/uL (4.20-6.10); RDW 13.8 % (11.5-14.5); WBC 9.5 10x3/uL (4.8-10.8)
[2020-11-03 18:11] LABS: APTT 27.4 SECONDS (22.8-39.4); INR 0.98 (0.85-1.17)
[2020-11-03 18:12] LABS: CALC OSMOLALITY 267 mosm/kg (275-300); CALCIUM 9.1 mg/dL (8.5-10.1); CARBON DIOXIDE 27.7 mmol/L (21.0-32.0); CHLORIDE - SERUM 95 mmol/L (98-107); CREATININE - SERUM 0.9 mg/dL (0.6-1.3); GLUCOSE 128 mg/dL (74-106); POTASSIUM - SERUM 3.9 mmol/L (3.5-5.1); SODIUM 132 mmol/L (136-145); UREA NITROGEN 16 mg/dL (7-18); eGFR NON AFRICAN AMERICAN > 90 mL/min (90-120)
[2020-11-03 18:26] LABS: ALBUMIN 4.3 g/dL (3.4-5.0); ALKALINE PHOSPHATASE 141 U/L (30-120); ALT (SGPT) 41 U/L (10-68); BILIRUBIN - TOTAL 0.36 mg/dL (0.2-1.3); CKMB 0.8 U/L (0.0-3.6); CREATINE KINASE 70 UL (21-232); MAGNESIUM - SERUM 1.9 mg/dL (1.8-2.4); PROTEIN - SERUM 7.9 g/dL (6.4-8.2)
[2020-11-03 18:32] LABS: TROPONIN-I < 0.017 ng/mL (0.000-0.060)
--- NOTE | 2020-11-03 19:10 | NUR ---
ASSUMED CARE OF PATIENT, RESTING QUIETLY AT THIS TIME WITH HIS AT BEDSIDE, C/O MID CHEST PAIN A 8/10 ON PAIN SCALE, SECOND NITRO GIVEN.
--- NOTE | 2020-11-03 19:16 | NUR ---
THIRD NITRO GIVEN FOR C/O CHEST PAIN, CALL LIGHT WITHIN REACH.
[2020-11-03 20:02] VITALS: BP 135/75
--- NOTE | 2020-11-03 21:20 | NUR ---
REPORT RECIEVED FROM ER.
--- NOTE | 2020-11-03 21:24 | NUR ---
NS INFUSING AT 75 ML/HR UPON TRANSPORT TO ROOM
[2020-11-03 21:54] VITALS: BP 142/87
[2020-11-03 22:34] VITALS: BP 135/75; BMI 21.6
[2020-11-04 01:00] VITALS: BP 110/67
[2020-11-04 03:06] LABS: CKMB 0.6 U/L (0.0-3.6); CREATINE KINASE 62 UL (21-232); TROPONIN-I < 0.017 ng/mL (0.000-0.060)
[2020-11-04 04:34] VITALS: BP 93/48
[2020-11-04 06:21] LABS: BASOPHILS 0.3 % (0-2); EOSINOPHILS 4.3 % (0-7); HEMATOCRIT 39.8 % (42.0-54.0); HEMOGLOBIN 13.2 g/dL (13.5-17.5); IMMATURE GRANULOCYTES 0.1 % (0-5); LYMPHOCYTE ABS# 2.38 10x3/uL (1.32-3.57); MCH 29.5 pg (26.0-34.0); MCHC 33.2 g/dL (31.0-37.0); MEAN PLATELET VOLUME 9.8 fL (7.4-10.4); MONOCYTES 8.6 % (2-11); NEUTROPHIL ABS# 3.68 10x3/uL (1.78-5.38); NEUTROPHILS 52.7 % (40-80); PLATELET COUNT 247 10x3/uL (130-400); RBC 4.47 10x6/uL (4.20-6.10); RDW 13.8 % (11.5-14.5)
--- NOTE | 2020-11-04 06:40 | NUR ---
PT ARRIVED TO UNIT AT 2130 FROM ER. ALERT/ORIENTED. ACCOMPANIED BY SPOUSE. ADMISSION HISTORY AND ASSESSMENT COMPLETED. HOME MEDS REVIEWED AND UPDATED WITH SPOUSE ASSISTANCE. NS @ 75ML/HR INFUSING TO RFA. FSBS THIS AM IS 147. PT BEING KEPT NPO UNTIL SEEN BY STICK PULLER. ON TELEMETRY, SR ALL NIGHT. CALL LIGHT IN REACH. REPORT TO ONCOMING NURSE.
[2020-11-04 06:42] LABS: ALBUMIN 3.6 g/dL (3.4-5.0); ALKALINE PHOSPHATASE 140 U/L (30-120); ALT (SGPT) 33 U/L (10-68); BILIRUBIN - TOTAL 0.17 mg/dL (0.2-1.3); CALCIUM 8.2 mg/dL (8.5-10.1); CARBON DIOXIDE 29.6 mmol/L (21.0-32.0); CHLORIDE - SERUM 104 mmol/L (98-107); CREATININE - SERUM 0.9 mg/dL (0.6-1.3); POTASSIUM - SERUM 3.5 mmol/L (3.5-5.1); PROTEIN - SERUM 6.3 g/dL (6.4-8.2); SODIUM 139 mmol/L (136-145); UREA NITROGEN 12 mg/dL (7-18); eGFR NON AFRICAN AMERICAN > 90 mL/min (90-120)
[2020-11-04 06:44] LABS: CALC OSMOLALITY 282 mosm/kg (275-300); GLUCOSE 184 mg/dL (74-106)
[2020-11-04 06:49] LABS: CKMB 0.5 U/L (0.0-3.6); CREATINE KINASE 60 UL (21-232)
[2020-11-04 06:53] LABS: TROPONIN-I < 0.017 ng/mL (0.000-0.060)
[2020-11-04 08:51] VITALS: BP 135/83
[2020-11-04 09:49] LABS: ALT (SGPT) 32 U/L (10-68); CALC OSMOLALITY 283 mosm/kg (275-300); CALCIUM 8.3 mg/dL (8.5-10.1); CARBON DIOXIDE 26.5 mmol/L (21.0-32.0); CHLORIDE - SERUM 102 mmol/L (98-107); CHOL - HDL RATIO 4.5 ratio (2.3-4.9); CHOLESTEROL, TOTAL 126 mg/dL (0-200); CREATININE - SERUM 0.9 mg/dL (0.6-1.3); GLUCOSE 185 mg/dL (74-106); HDL CHOLESTEROL 28 mg/dL (32-96); LDL CHOLESTEROL 43 mg/dL (0-100); LDL-HDL RATIO 1.5 ratio (1.5-3.5); POTASSIUM - SERUM 3.6 mmol/L (3.5-5.1); SODIUM 140 mmol/L (136-145); TRIGLYCERIDE 276 mg/dL (30-200); UREA NITROGEN 12 mg/dL (7-18); eGFR NON AFRICAN AMERICAN > 90 mL/min (90-120)
[2020-11-04 12:25] VITALS: BP 126/68
--- NOTE | 2020-11-04 13:40 | NUR ---
CONSENTS SIGNED FOR HC IN AM.
[2020-11-04 14:32] LABS: CKMB 0.5 U/L (0.0-3.6); CREATINE KINASE 64 UL (21-232)
[2020-11-04 14:35] LABS: TROPONIN-I < 0.017 ng/mL (0.000-0.060)
[2020-11-04 16:45] VITALS: BP 142/67
[2020-11-04 19:00] VITALS: BP 155/85
--- NOTE | 2020-11-04 19:30 | NUR ---
RECEIVED REPORT, WILL ASSUME CARE OF PT, TALKING ON PHONE, DENIES ANY NEEDS AT THIS TIME, BED IS LOW, SRX2, CALL LIGHT IN REACH, WILL CONTINUE PLAN OF CARE
[2020-11-05] VITALS: BP 136/79
[2020-11-05 06:09] VITALS: BP 116/73
[2020-11-05 07:04] LABS: BASOPHILS 0.8 % (0-2); EOSINOPHILS 4.2 % (0-7); HEMATOCRIT 38.6 % (42.0-54.0); HEMOGLOBIN 12.6 g/dL (13.5-17.5); IMMATURE GRANULOCYTES 0.2 % (0-5); LYMPHOCYTE ABS# 2.61 10x3/uL (1.32-3.57); LYMPHOCYTES 40.8 % (15-50); MCH 29.5 pg (26.0-34.0); MCHC 32.6 g/dL (31.0-37.0); MCV 90.4 fL (80.0-100.0); MEAN PLATELET VOLUME 9.7 fL (7.4-10.4); MONOCYTES 8.8 % (2-11); NEUTROPHIL ABS# 2.89 10x3/uL (1.78-5.38); NEUTROPHILS 45.2 % (40-80); PLATELET COUNT 232 10x3/uL (130-400); RBC 4.27 10x6/uL (4.20-6.10); RDW 14.3 % (11.5-14.5); WBC 6.4 10x3/uL (4.8-10.8)
[2020-11-05 07:11] LABS: ALBUMIN 3.4 g/dL (3.4-5.0); ALKALINE PHOSPHATASE 112 U/L (30-120); ALT (SGPT) 28 U/L (10-68); CALC OSMOLALITY 278 mosm/kg (275-300); CALCIUM 8.2 mg/dL (8.5-10.1); CARBON DIOXIDE 29.5 mmol/L (21.0-32.0); CHLORIDE - SERUM 106 mmol/L (98-107); CREATININE - SERUM 0.8 mg/dL (0.6-1.3); GLUCOSE 109 mg/dL (74-106); MAGNESIUM - SERUM 1.7 mg/dL (1.8-2.4); PROTEIN - SERUM 6.5 g/dL (6.4-8.2); SODIUM 140 mmol/L (136-145); UREA NITROGEN 9 mg/dL (7-18); eGFR NON AFRICAN AMERICAN > 90 mL/min (90-120)
[2020-11-05 08:22] VITALS: BP 116/65
--- NOTE | 2020-11-05 09:40 | NUR ---
PT BACK TO ROOM FROM RN MEDICARE. CLEAN CATH. LYING FLAT NOW, LITTLE GROGGY AND THIRSTY. GROIN DRESSING CDI.
--- NOTE | 2020-11-05 11:06 | NUR ---
NITRO PATCH REMOVED FROM PT'S CHEST.
[2020-11-05 12:00] VITALS: BP 118/69
[2020-11-05 12:32] VITALS: Ht 175.3 cm; Wt 66.2 kg
[2020-11-05] MEDS ORDERED: NICODERM CQ1 EAC3 TRANSDERM (13:36)
--- NOTE | 2020-11-05 14:30 | NUR ---
PT'S DISCHARGE INSTRUCTIONS REVIEWED AND SIGNED. IV OUT, TELEMETRY REMOVED AND RETURNED TO ICU. WHEELED TO EXIT.
--- NOTE | 2020-11-05 23:07 | MORECARE ---
CASE MANAGEMENT DISCHARGE SUMMARY PATIENT: KENDRA BARRY UNIT: [id number] ADM DATE: 11/03/20 AGE: 55 : 63 SEX: M ROOM/BED: D.2115 AUTHOR: FRED CONRAD PHYSICIAN: REFERRING PHYSICIAN: ADRIAN NEVILLE MD DATE OF SERVICE: 11/05/20 Discharge Plan Patient Name: KENDRA BARRY Facility: [facility]:Geraldine : 1965 Planned Disposition: Anticipated Discharge Date: Discharge Date: 11/05/2020 Expected LOS: Initial Reviewer: [email or web address] Initial Review Date: 11/04/2020 Generated: 11/06/20 12:06 am Coverage Notice Reviewer: [email or web address] Sabrina Fields Notice Issued Date-Time: 11/04/2020 11:25 Notice Type: Medicare Outpatient Observation Notice Notice Delivered To: Patient Relationship to Patient: Self Expansion Joint Builder Name: Delivery Method: HAND - Hand Delivered Kari Days: Prior Verbal Notification: Recipient Understood Notice: Yes Recipient Signature: Yes Med Rec Note Co-signed by Attending: Coverage Notice Comment: CLAIRE explained. signed by Pt, and copy placed in chart Patient Name: KENDRA BARRY Page [phone] at 2307 All edits/amendments must be made on the electronic document DICTATION DATE: 11/05/202305 MAINTENANCE JOURNEYMAN: AGUSTIN 11/05/202305 RPT#: [id number] DC DATE:11/05/20 STATUS: DIS IN [facility] [address] [place] [address] END OF REPORT
== END 2020-11-05 14:34 | disposition home or self-care (01) ==
LOC: D.ER 17:29 → D.M2 19:02 → D.EDHOLD 19:02 → D.M2 21:19 → OBSVTIME 11-04 19:02 → D.M2 11-05 14:34
PROVIDERS: Family Medicine; Internal Medicine Cardiovascular Disease; ADMIT Family Medicine; ATTEND Family Medicine
DX: R07.9 Chest pain, unspecified (principal); R20.0 Anesthesia of skin; Z86.73 Personal history of transient ischemic attack (TIA), and cerebral infarction without residual deficits; I10 Essential (primary) hypertension; E78.5 Hyperlipidemia, unspecified; K21.9 Gastro-esophageal reflux disease without esophagitis; Z79.84 Long term (current) use of oral hypoglycemic drugs; E11.65 Type 2 diabetes mellitus with hyperglycemia; F17.203 Nicotine dependence unspecified, with withdrawal; I25.110 Atherosclerotic heart disease of native coronary artery with unstable angina pectoris

== ENCOUNTER 2021-01-07 08:00 | Outpatient (CLI) | payer MEDICARE ==
[2020-11-05 12:32] VITALS: BMI 21.5
[~2021-01-07 08:00] MED LIST changes: +NICODERM CQ1 EAC3 TRANSDERM
== END 2021-01-07 08:01 | disposition home or self-care (01) ==
LOC: D.CT 08:00
PROVIDERS: ATTEND Internal Medicine Interventional Cardiology
DX: I65.23 Occlusion and stenosis of bilateral carotid arteries (principal)